=== PATIENT | female | born 1965 | race Caucasian/White ===

== ENCOUNTER 2023-10-31 23:44 | Inpatient (IN) | payer BC, SELFPAY ==
[2023-10-31 23:54] VITALS: BP 149/78; PULSE 124; RESP 26; TEMP 36.7; O2SAT 92; O2SAT 95; BMI 45.2
--- NOTE | 2023-10-31 23:54 | CRLHL7_ITS ---
For Patients: As a result of the Century Cures Act, medical imaging exams and procedure reports are released immediately into your electronic medical record. You may view this report before your referring provider. If you have questions, please contact your health care provider. INDICATION: Shortness of breath. TECHNIQUE: CT chest PE was acquired with 79 cc Isovue 370 IV contrast. COMPARISON: None. FINDINGS: Heart and vasculature: Contrast opacification of the pulmonary arterial tree is adequate. Extensive bilateral pulmonary emboli, including in the right interlobar pulmonary artery and left pulmonary artery. Heart size is normal. Flattening of the interventricular septum with RV:LV ratio of 1.3, reflecting right heart strain. Thoracic aorta and pulmonary artery are normal in caliber. Lungs and pleura: Mosaic attenuation, likely representing air trapping. Few linear parenchymal bands, likely representing subsegmental atelectasis. No suspicious nodules or infiltrates. No pleural effusions, pleural thickening, or pneumothorax. Lymph nodes/mediastinum: No mediastinal, hilar, or axillary adenopathy. Thyroid gland is unremarkable. Chest wall: No masses. Upper abdomen: Status post cholecystectomy. 5 cm left adrenal nodule measuring less than 0 Hounsfield units, likely an adenoma. Bones: Unremarkable for age. IMPRESSION: 1. Extensive bilateral pulmonary emboli with evidence of right heart strain. 2. Findings were discussed with Dr. Oden by Dr. Ji on 11/01/2023 at 01:29 AM. 3. Air trapping, likely secondary to small airways disease. Please note that all CT scans at this facility use dose modulation, iterative reconstruction, and/or weight-based dosing when appropriate to reduce radiation dose to as low as reasonably achievable. Dictated by Juanito Ji MD @ 11/01/2023 1:21:00 AM (Electronically Signed)
[2023-11-01] VITALS (16 sets, daily range): BP systolic 104–138; BP diastolic 65–90; PULSE 86–113; RESP 16–22; TEMP 36.4–36.8; O2SAT 91–93; BMI 47.0
[2023-11-01 00:32] LABS: Basophils Absolute Auto 0.04 K/uL (0.00-0.30); Basophils Percent Auto 0.4 % (0.0-3.0); Eosinophils Absolute Auto 0.06 K/uL (0.00-0.50); Eosinophils Percent Auto 0.6 % (0.0-7.0); Hemoglobin* 11.9 gm/dL (12.0-16.0); Immature Granulocytes Abs Auto 0.04 K/uL (0.00-0.30); Immature Granulocytes Pct Auto 0.4 %; Lymphocytes Percent Auto 10.1 % (20-44); Mean Corpuscular HGB Conc 31 gm/dL (32-36); Mean Corpuscular Hemoglobin 27 pg (26-34); Mean Corpuscular Volume 87 fL (80-100); Monocytes Percent Auto 3.1 % (0.0-11.0); Neutrophils Percent Auto 85.4 % (42.0-72.0); Platelet Count* 190 K/uL (140-440); RDW Coefficient of Variation % 14.5 % (11.5-15.5); Red Blood Count 4.36 m/uL (4.00-5.20); White Blood Count* 10.82 K/uL (4.50-11.00)
[2023-11-01 00:36] LABS: Slide Review Reflex No
--- NOTE | 2023-11-01 00:45 | ED_ITS ---
HPI - SOB/Dyspnea General Date Seen: 11/01/23 Chief Complaint: Shortness of Breath/Dyspnea Stated Complaint: syncope Time Seen by Provider: 11/01/23 00:13 Source: patient Mode of arrival: EMS Limitations: no limitations History of Present Illness HPI Narrative: Patient is a 57-year-old female who comes in with fairly sudden onset of shortness of breath that began earlier this evening. Her past medical history is significant for pulmonary emboli diagnosed early in 2022. She was treated with the Eliquis for more than a year. She saw hematology in May 2023 and had a negative hypercoagulability workup. Her father is lupus anticoagulant positive. She was told that she could stop her Eliquis and has been off the medication since June. An July she developed a cough and has been coughing since that time although it does not appear that she has been into the clinic for this. She denies any leg swelling. Previously she had clot in her right leg. She has some pain in the left leg but she also has fibromyalgia in his daily leg pain. She has not noticed any warmth, redness, asymmetric swelling. Ambulance was called and she was found to have an oxygen saturation of about 80%. She arrived in the ER in a non-rebreather mask on a L of oxygen. We have been able to decrease that since her arrival. 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 She has hypertension and takes atenolol and lisinopril and hydrochlorothiazide. She has type 2 diabetes and takes metformin. Her last A1c was in the seven range. She is not monitor her blood sugar at home. She denies any exertional chest pains but acknowledges that she is not physically active. She is a nonsmoker. Related Data Allergies Allergy/AdvReac Type Severity Reaction Status Date / Time Penicillins AdvReac Verified 11/01/23 00:32 Sulfa (Sulfonamide AdvReac Verified 11/01/23 00:32 Antibiotics) Review of Systems Narrative: Review of systems is positive for chronic leg pain related to fibromyalgia. She has type 2 diabetes but does not check her blood sugar. She has hypertension but does not monitor her blood pressure at home. Review of systems is otherwise noted to be negative. [facility] Medical History (Updated 11/01/23 @ 01:38 by Gomez Montesinos MD) Primary hypertension ?I10 - Essential (primary) hypertension (ICD-10) Type 2 diabetes mellitus, without long-term current use of insulin ?E11.9 - Type 2 diabetes mellitus without complications (ICD-10) Fibromyalgia ?M79.7 - Fibromyalgia (ICD-10) DVT (deep vein thrombosis) in ?O22.30 - Deep phlebothrombosis in , unspecified trimester (ICD-10) Pulmonary embolism ?I26.99 - Other pulmonary embolism without acute cor pulmonale (ICD-10) Surgical History (Updated 11/01/23 @ 00:41 by Gomez Montesinos MD) [place] teeth extracted ?K08.409 - Partial loss of teeth, unspecified cause, unspecified class (ICD- 10) Hx laparoscopic cholecystectomy ?Z90.49 - Acquired absence of other specified parts of digestive tract (ICD- 10) Family History (Updated 11/01/23 @ 00:41 by Gomez Montesinos MD) Father Lupus anticoagulant positive Social History (Updated 11/01/23 @ 00:42 by Gomez Montesinos MD) Narrative: , 1 son, [employer], non-smoker, PCP [facility] Smoking Status: Never smoker Do you use any of these nicotine containing products: None How often do you have a drink containing alcohol: never AUDIT-C Alcohol total score: 0 Non-prescribed substance use: denies use Exam Narrative: Exam Narrative: Vitals noted. HEENT: Conjunctiva clear. Neck is supple without adenopathy, thyromegaly, carotid bruit. No jugular venous distension. Lungs: She has coarse rhonchi. No dependent rales. No expiratory wheezes. She has some congestion that clears with coughing. Heart: Mildly tachycardic but regular Regular rate and rhythm without murmur. Abdomen: Soft and nontender. No guarding, rigidity, rebound. Bowel sounds are normal. No palpable masses. Extremities: No cyanosis or edema. Good distal pulses. No warmth, redness, swelling of either calf. Negative Bishop sign. Skin: No abnormalities noted of the exposed skin. Neurologic: Awake, alert, fully oriented. Neurologic exam is nonfocal. Const: Vital Signs, click to edit/add: Vital Signs - 24 hr 10/31/23 23:54 10/31/23 23:54 11/01/23 01:15 Temperature 98.0 F Pulse Rate 113 H Pulse Rate [Pulse Oximeter] 124 H Respiratory Rate 26 H Blood Pressure Blood Pressure [Ri ght Upper Arm] 149/78 H Pulse Oximetry 95 92 93 Oxygen Delivery Me thod OxyMask OxyMask Oxygen Flow Rate 8 5 11/01/23 01:21 11/01/23 01:42 11/01/23 01:47 Temperature Pulse Rate 113 H 110 H Pulse Rate [Pulse Oximeter] Respiratory Rate 22 Blood Pressure 127/82 122/76 Blood Pressure [Ri ght Upper Arm] Pulse Oximetry 92 91 93 Oxygen Delivery Me thod OxyMask OxyMask Oxygen Flow Rate 5 5 Course Course ED Course: Patient seen and examined. EKG shows sinus tachycardia with a rate of 118. No acute ST or T-wave changes. Her oxygen was weaned to 4 L by non-rebreather mask and she is oxygenating in the low to mid 90s. On room air she was only 80% when the paramedics arrived. Point of care troponin is 0.21. Labs show a CBC with hemoglobin of 11.9 which is otherwise unremarkable. INR 0.97. APTT is 29. D- dimer is very elevated at 12.37. Basic metabolic panel is normal other than a glucose of 248. Lactate is 3.0. Magnesium is 1.9. LFTs show an AST of 123 and an ALT of 91. Troponin is 0.16. CRP 1.6. ProBNP is 95. Procalcitonin 0.07. Triple swab is negative. Reevaluation(s) Reevaluation #1: CTA of the chest shows extensive bilateral pulmonary emboli with signs of right heart strain. RV: LV is 1.3. Patient started on IV heparin. Did speak with one of the intensivists at [facility] to determine if transfer for more aggressive care is warranted and she did not believe that was necessary. I spoke with the online hospitalist from [facility] who kindly agreed to admit the patient to the hospital. She is transferred to the medical floor in stable condition. She will require lifelong anticoagulation at this point. She should have lower extremity Dopplers tomorrow as well as an echo. Her Echo a year ago apparently was normal. Vital Signs Vital signs: Initial Vital Signs Temperature 98.0 F 10/31/23 23:54 Temperature Source Temporal Artery Scan 10/31/23 23:54 Pulse Rate 124 H 07/25/24 23:54 Respiratory Rate 26 H 10/31/23 23:54 Blood Pressure 149/78 H 10/31/23 23:54 Blood Pressure Mean 101 10/31/23 23:54 Blood Pressure Position Sitting 10/31/23 23:54 Pulse Oximetry 95 10/31/23 23:54 Oxygen Delivery Method OxyMask 10/31/23 23:54 Oxygen Flow Rate 8 10/31/23 23:54 Vital Signs Temperature 98.0 F 10/31/23 23:54 Pulse Rate 124 H 10/31/23 23:54 Respiratory Rate 26 H 10/31/23 23:54 Blood Pressure 149/78 H 10/31/23 23:54 Pulse Oximetry 95 10/31/23 23:54 Oxygen Delivery Method OxyMask 10/31/23 23:54 Oxygen Flow Rate 8 10/31/23 23:54 Temperature 98.0 F 10/31/23 23:54 Pulse Rate 110 H 11/01/23 01:42 Respiratory Rate 22 11/01/23 01:42 Blood Pressure 122/76 11/01/23 01:42 Pulse Oximetry 93 11/01/23 01:47 Oxygen Delivery Method OxyMask 11/01/23 01:42 Oxygen Flow Rate 5 11/01/23 01:42 Medications Administered Medications: Generic Name Dose Route Start Last Admin Trade Name Freq PRN Reason Stop Dose Admin Heparin Sodium/Dextrose 25,000 unit in 500 mls @ 0 mls/hr 11/01/23 01:30 11/01/23 01:33 Heparin IV 1,500 unit/hr .Q0M AILEEN 30 mls/hr Administration Protocol Per Protocol Discontinued Medications Generic Name Dose Route Start Last Admin Trade Name Freq PRN Reason Stop Dose Admin Heparin Sodium (Porcine) 10,000 unit 11/01/23 01:20 11/01/23 01:32 Heparin 5,000 Unit/0.5 Ml Inj IVP 11/01/23 01:21 10,000 unit ONCE ONE Administration MDM - SOB/Dyspnea Lab Data Labs: Lab Results 11/01/23 11/01/23 11/01/23 Range/Units 00:25 00:25 01:00 WBC 10.82 (4.50-11.00) K/uL RBC 4.36 (4.00-5.20) m/uL Hgb 11.9 L (12.0-16.0) gm/dL Hct 38.0 (33.0-51.0) % MCV 87 (80-100) fL MCH 27 (26-34) pg MCHC 31 L (32-36) gm/dL RDW Coeff of Alan 14.5 (11.5-15.5) % Plt Count 190 (140-440) K/uL Neut % (Auto) 85.4 H (42.0-72.0) % Lymph % (Auto) 10.1 L (20-44) % Haines % (Auto) 3.1 (0.0-11.0) % Eos % (Auto) 0.6 (0.0-7.0) % Baso % (Auto) 0.4 (0.0-3.0) % Neut # (Auto) 9.20 H (1.7-7.0) K/uL Lymph # (Auto) 1.10 (0.90-2.90) K/uL Haines # (Auto) 0.30 (0.00-0.90) K/UL Eos # (Auto) 0.06 (0.00-0.50) K/uL Baso # (Auto) 0.04 (0.00-0.30) K/uL Abs Immat Gran (auto) 0.04 (0.00-0.30) K/uL Imm/Tot Granulo (auto) 0.4 % PT Cancelled INR 0.97 Cancelled (0.91-1.10) APTT 29 (23-33) Seconds D-Dimer Quant (PE/DVT) 12.37 H (0.00-0.50) ug/ml Sodium 137 (135-149) mmol/L Potassium 4.3 (3.6-5.1) mmol/L Chloride 101 (96-114) mmol/L Carbon Dioxide 24 (20-32) mmol/L Anion Gap 12 (7-15) mEq/L BUN 26 (7-30) mg/dL Creatinine 1.1 (0.5-1.5) mg/dL Estimated Creat Clear 52.82 Estimated GFR 59 ml/min Glucose 248 H (60-115) mg/dL Lactate 3.0 H (0.5-1.9) mmol/L Calcium 10.1 (8.4-10.6) mg/dL Magnesium 1.9 (1.5-2.6) mg/dL Total Bilirubin 0.6 (0.1-1.5) mg/dL Direct Bilirubin 0.4 (0.0-0.5) mg/dL AST 123 H (12-35) U/L ALT 91 H (4-35) U/L Alkaline Phosphatase 101 (40-150) U/L Troponin I 0.16 H* (0.01-0.04) ng/mL C-Reactive Protein 1.6 H (0.5-1.0) mg/dL NT-Pro-B Natriuret Pep 95 pg/mL Total Protein 8.0 (6.0-8.3) g/dL Albumin 4.9 (3.3-5.0) g/dL Procalcitonin 0.07 (<0.50) ng/mL SARS-CoV-2 (PCR) Negative SARS-CoV-2 (Negative) Influenza Type A (PCR) Negative PCR FLU A (Negative) Influenza Type B (PCR) Negative PCR FLU B (Negative) RSV (PCR) Negative PCR RSV (Negative) POC Troponin I 0.21 H (0.01-0.04) ng/ml Discharge Plan Discharge Clinical Impression: Pulmonary embolism Patient Disposition: Admitted As Inpatient Condition: Stable
[2023-11-01 00:46] LABS: Chloride* 101 mmol/L (96-114)
[2023-11-01 00:47] LABS: Albumin* 4.9 g/dL (3.3-5.0); Sodium* 137 mmol/L (135-149)
[2023-11-01 00:48] LABS: Potassium* 4.3 mmol/L (3.6-5.1)
--- OUTSIDE RECORDS SUMMARY | 2023-11-01 00:48 | XMS_ITS | Clinical Summary ---
Author Organization [employer] [facility] Address [place], [place] [address] Care Team Providers Care Case Monitor Name Role Phone Antonina Gaston Primary Care Provider Terri Dubose MD Unavailable [phone] Allergies Active Allergy Reactions Criticality Noted Date Comments Penicillins Sulfa (Sulfonamide Antibiotics) Tizanidine *Unknown 11/19/2022 Medications Medication Sig Dispensed Refills Start Date End Date Status chromium picolinate 200 mcg tablet Take 200 mcg by mouth once daily. 0 04/11/2010 Active ORDER - MEDICATION ORDER COMPOSER Adrenogen - 2 per day 0 04/11/2010 Active ORDER - MEDICATION ORDER COMPOSER Metagest - one per day 0 07/17/2010 Active multivitamin (MVI) tablet Take 1 Tablet by mouth once daily. 0 07/31/2013 Active aspirin (ECOTRIN) 81 mg enteric coated tabletIndications:Un specified essential hypertension Take 1 tablet by mouth once daily. 90 tablet 3 06/01/2014 Active magnesium 250 mg tab Take 1 tablet by mouth once daily. 0 10/01/2014 Active Lactobacillus Acidophilus cap Take by mouth two times daily. Takes 3 per day (split into two doses). Patient taking 2 different probiotics each 1 tab 3 times a day 0 10/01/2014 Active qdjbzuznk-uegbxwz-dl gnes-manga [id number] mg pwpk Mix in liquid then take by mouth two times daily. 0 10/14/2015 Active cholecalciferol, Vitamin D3, 5,000 unit tab tablet Take 1 tablet by mouth once daily. 0 11/05/2017 Active turmeric root extract 500 mg cap Take 500 mg by mouth once daily. 0 12/12/2018 Active jdhgk-bg-6-dha-epa-p hospho-ast [id number] mg cap Take 1 Capsule by mouth once daily. 0 12/12/2018 Active blood sugar diagnostic (CONTOUR NEXT TEST STRIPS) stripIndications:Con trolled type 2 diabetes mellitus without complication, without long-term current use of insulin (HC) Contour NEXT strips. Test 3 times per week 50 Strip 12 05/11/2019 Active lancets (MICROLET LANCET)Indications:C ontrolled type 2 diabetes mellitus without complication, without long-term current use of insulin (HC) For testing blood sugars at home 3 times per week 100 Each 05/11/2019 Active Black Cohosh 540 mg capsule Take 540 mg by mouth three times daily. 0 08/05/2020 Active Saccharomyces boulardii (FLORASTOR) 250 mg capsule Take by mouth two times daily. Takes 3 per day (split into 2 doses) Not taking 0 08/05/2020 Active ascorbic acid chewable (VITAMIN C) 500 mg tablet Chew 500 mg by mouth once daily. Active loratadine (CLARITIN) 10 mg tablet Take 10 mg by mouth once daily. Active apixaban (Eliquis) 5 mg tabletIndications:Bi lateral pulmonary embolism (HC) Take 1 Tablet (5 mg) by mouth two times daily. 30 Tablet 6 12/04/2022 Active atenoloL (TENORMIN) 50 mg tabletIndications:HT N (hypertension) Take 1 Tablet (50 mg) by mouth once daily. 90 Tablet 3 02/08/2023 Active hydroCHLOROthiazide (HCTZ) 25 mg tabletIndications:HT N (hypertension) Take 1 Tablet (25 mg) by mouth once daily. 90 Tablet 3 02/08/2023 Active lisinopriL (PRINIVIL; ZESTRIL) 40 mg tabletIndications:Hy pertension, unspecified type Take 1 Tablet (40 mg) by mouth once daily. 90 Tablet 3 02/08/2023 Active metFORMIN (GLUCOPHAGE XR) 750 mg Extended-Release tabletIndications:Co ntrolled type 2 diabetes mellitus without complication, without long-term current use of insulin (HC) Take 2 Tablets (1,500 mg) by mouth once daily with evening meal. 180 Tablet 3 02/08/2023 Active Active Problems Problem Noted Date Diagnosed Date Left adrenal mass 05/05/2022 Acute pulmonary embolism 05/03/2022 Controlled type 2 diabetes m ivanitus without complication, without long-term current use of insulin 01/20/2021 Carpal tunnel syndrome of right wrist 12/28/2020 Encounter related to worker's compensation claim 12/28/2020 De Quervain's tenosynovitis, left 12/28/2020 Carpal tunnel syndrome of left wrist 12/28/2020 Cholelithiasis 05/11/2014 Fibromyalgia 05/07/2014 Anxiety state, unspecified 12/15/2009 Obesity, unspecified 05/13/2009 Unspecified essential hypertension 03/05/2007 Resolved Problems Problem Noted Date Diagnosed Date Resolved Date Vitamin D deficiency 05/18/2009 012 Immunizations Name Administration Dates Next Due AMB Influenza, IIV3 (Age >=3 years)(Flu Clinic Only) 01/11/2009 AMB Influenza, IIV4 PF (=>6 mos Flulaval,Fluzone Fluarix)(Flu Clinic Only) 01/11/2014 COVID-19 Vaccine Spikevax (M oderna 50mcg/0.5mL) 12YO+ [id number] Formula PF 02/08/2023 COVID-19 vaccine (Rock'n Rover-Bio NTech 30mcg/0.3mL) 12YO+ BIVALENT PF, MDV 02/07/2022 DT (Age < 7 years) 06/26/1989 Influenza A (H1N1), Inactiva eva (Age >=3 Years) 02/17/2009 Influenza, IIV3 (Age 6-35 mos) 3,02/12/2012,01/17/2011,2009,02/26/2007 Influenza, IIV3 (Age >=3 years) 02/02/20 15,02/14/2010,01/11/2009,2007,05/17/2006 Influenza, IIV4 02/08/2023, 2,01/20/2021,2019,01/18/2019,01/10/2018,01/14/2017,1 ,02/01/2015,01/11/2014 Td (Age >=7 Years) 01/20/2021,10/18/2000 Tdap 05/22/2010 Varicella Vaccine 08/14/1996,07/03/1996 Family History Medical History Relation Name Comments Good Health Brother two brothers Other Father Lupus Anticoagu lant Stroke Father Cancer-breast Maternal Grandmother diagno sed at age 80 Diabetes Maternal Grandmother diagnos ed in 60s or 70s Cancer Mother lymphoma Hyperlipidemia Mother Hypertension Mother Other Mother lupus Cancer Paternal Aunt pancreas? Good Health Sister Cancer-ovarian No Family History Relation Name Status Comments Brother Father Maternal Grandmother Mother Paternal Aunt Sister Social History Tobacco Use Types Packs/Day Years Used Date Smoking Tobacco: Never Smokeless Tobacco: Never Tobacco Cessation:Counseling Given: Yes Alcohol Use Standard Drinks/Week Comments No 0 (1 standard drink = 0.6 oz pur e alcohol) very seldom PHQ-2 Answer Date Recorded PHQ-2 TOTAL SCORE 2 01/05/2020 Social Connections Answer Date Recorded Frequency of Communication with Friends and Fami ly Not on file 04/08/2021 Financial Resource Strain Answer Date R ecorded Difficulty of Paying Living Expenses Not on file 04/08/2021 Difficulty of Paying Living Expenses Not on file 04/08/2021 Sex and Gender Information Value Date Recorded Sex Assigned at Not on file Gender Identity Not on file Sexual Orientation Not on file Obstetrics History Para Term AB IAB SAB Ectopic Multiple Livin g Live Births 3 2 2 1 1 2 Date Outcome GA Total Labor Labor/2nd/3rd Weight Sex Type Anes PTL Belle A1 A5 Name Clin SAB Term Term Last Filed Vital Signs Vital Sign Reading Time Taken Comments Blood Pressure 129/65 06/04/2023 2:56 PM BEHAVIORAL PEDIATRICIAN Pulse 80 06/04/2023 2:56 PM BEHAVIORAL PEDIATRICIAN Temperature 36.6 ??C (97.9 ??F) 06/04/2023 2:56 PM CS T Respiratory Rate 16 06/04/2023 2:56 PM BEHAVIORAL PEDIATRICIAN Oxygen Saturation 96% 06/04/2023 2:56 PM BEHAVIORAL PEDIATRICIAN Inhaled Oxygen Concentration - - Weight 131.2 kg (289 lb 3.2 oz) 06/04/2023 2:56 PM BEHAVIORAL PEDIATRICIAN Height 167.6 cm (5' 6) 02/08/2023 10:1 1 AM CDT Body Mass Index 46.68 02/08/2023 10:11 AM CDT Plan of Treatment Health Maintenance Due Date Last Done Comments Pneumococcal series for age 6-64 (1 of 2 - PCV) 11/29/1971 HIV for age 15-65 1980 Hepatitis C screening for ag e 18-79 11/29/1983 Hepatitis B series for Diabe karla (1 of 3 - 19+ 3-dose series) 1984 Colonoscopy through age 75 2010 Zoster (shingles) series for age 50+ (1 of 2) 11/29/2015 Depression screening for age 12+ 01/04/2021 01/05/2020, 01/05/2020, 12/12/2018, Additional history exists Mammogram for age 45-75 02/28/2023 02/29/20 22, 01/20/2021, 01/05/2020, Additional history exists Influenza for age 50-64 12/08/2023 02/09/20, 02/07/2022, 01/20/2021, Additional history exists Pap test for age 21-65 12/13/2023 9, 12/12/2018, 10/14/2015, Additional history exists BMI (ht and wt on same day) for age 18+ 02/09/2024 02/08/2023, 02/07/2022, 06/30/2021, Additional history exists Lipids for age 45-75 02/09/2028 02/08/2023, 01/22/2022, 01/20/2021, Additional history exists Tetanus booster 01/20/2031 01/20/2021, 05/09, 10/18/2000 Tdap Completed 05/22/2010 COVID-19 vaccine series Completed 02/09/20, 02/07/2022, 03/19/2021, Additional history exists Procedures Procedure Name Priority Date/Time Associated Diagnosis Comments LIPID PANEL W REFLEX MEASURED LDL Routine 02/08/2023 9:44 AM CDT Screening cholesterol level XR MAMMO BILAT SCREENING Routine 02/28/2022 4:02 PM BEHAVIORAL PEDIATRICIAN Visit for screening mammogram GAS OPERATOR THIN PREP PAP SCREEN IMAGED Routine 12/12/2018 10:34 AM CDT Screening for cervical cancer from Last 3 Months or Most Recently Relevant to Health Maintenance Results * (ABNORMAL) LIPID PANEL W REFLEX MEASURED LDL (02/08/2023 9:44 AM CDT) CHOLESTEROL,TOTAL 208(H) 100 - 199 mg/dL 02/08/2023 4:02 PM CDT [facility] Comment: Cholesterol, Total Reference Ranges Desirable <200 mg/dL Borderline 200-239 mg/dL High >=240 mg/dL TRIGLYCERIDES 311(H) <150 mg/dL 02/08/2023 4:02 PM CDT [facility] HDL CHOLESTEROL 44 >40 mg/dL 4:02 PM CDT [facility] NON-HDL CHOLESTEROL 164(H) <145 mg/dl 02/08/2023 4:02 PM CDT [facility] CHOL/HDL RATIO 4.73(H) <4.50 02/08/2023 4:02 PM CDT [facility] LDL CHOLESTEROL 102 <=130 mg/dL 02/08/2023 4:02 PM CDT [facility] VLDL CHOLESTEROL 62(H) <=30 mg/dL 02/08/2023 4:02 PM CDT [facility] PROVIDER ORDERED STATUS RANDOM 02/08/2023 4:02 PM CDT [facility] Blood BLOOD SPECIMEN / Unknown Venipuncture / Unknown 02/08/2023 9:44 AM CDT 02/08/2023 9:44 AM CDT Antonina [facility]OOLE [facility] [address] [place] [address], * XR MAMMO BILAT SCREENING (02/28/2022 4:02 PM BEHAVIORAL PEDIATRICIAN) Anatomical Region Laterality Modality BREASTS, Breast Left, Breast Right Bilateral Mammography Impressions 03/02/2022 4:20 PM BEHAVIORAL PEDIATRICIAN ??There is no radiographic evidence for malignancy. ??Recommend annual mammograms. MAMMOGRAM ASSESSMENT: ??ACR 1 Negative PATIENTS: You will also receive a letter with your examination results in an easy to read format. ??If you have questions about your results, please contact your referring provider. Narrative 03/02/2022 4:20 PM BEHAVIORAL PEDIATRICIAN For Patients: As a result of the Century Cures Act, medical imaging exams and procedure reports are released immediately into your electronic medical record. You may view this report before your referring provider. If you have questions, please contact your health care provider. XR MAMMO BILAT SCREENING [[id number]] CLINICAL HISTORY: ??This is an asymptomatic 56 y.o. patient. INDICATION FOR EXAM: Mammogram Screening. TECHNIQUE: CC & MLO views were obtained. ??This study was evaluated with the assistance of Computer-Aided Detection. COMPARISON FILM: Yes 01/20/21 Cellerix 01/05/20 [facility] Clear Advantage Collar FINDINGS: ??The breasts have scattered areas of fibroglandular density. There are no dominant masses, suspicious micro calcifications or areas of architectural distortion. Antonina POOLE MAMMO * GAS OPERATOR THIN PREP PAP SCREEN IMAGED (12/12/2018 10:34 AM CDT) Case Report Gynecologic Cytology Report ? Case: [id number] ? Authorizing Provider: ??Antonina Gaston PA Collected: ? 12/12/2018 1034 ? Ordering Location: ? [facility] ?? Received: ?12/12/2018 1049 ? Clinic ? First Screen: ?Candida Pickering ? Specimen: ?GAS OPERATOR ThinPrep Vial Screening, Cervical ? 12/19/2018 4:06 PM CDT [facility] INTERPRETATION/ RESULT NEGATIVE FOR INTRAEPITHELIAL LESION OR MALIGNANCY (NIL) (none) 12/19/2018 4:06 PM CDT [facility] NISM(S) Shift in mike suggestive of bacterial vaginosis 12/19/2018 4:06 PM CDT [facility] SPECIMEN ADEQUACY Satisfactory for evaluation Endocervical component present 12/19/2018 4:06 PM CDT [facility] HPV REQUEST HPV and PAP 12/19/2018 4:06 PM CDT [facility] Date of LMP unknown 12/19/2018 4:06 PM CDT [facility] Last Pap Date 7/8/16 12/19/2018 4:06 PM CDT [facility] Last Pap Result NIL 9 4:06 PM CDT [facility] Abnormal Pap or Waldo Bx in last 5 years No 12/19/2018 4:06 PM CDT [facility] Menstrual Status Postmenopausal 12/19/2018 4:06 PM CDT [facility] Waldo Bx Done Today No 12/19/2018 4:06 PM CDT [facility] Additional Information None given 12/19/2018 4:06 PM CDT [facility] Automated Review Successful 12/19/2018 4:06 PM CDT [facility] Comment:Specimen processed s uccessfully by automated bar manager device, AquirisPrep Imaging System, [employer] ANCILLARY TESTING GAS OPERATOR HPV Ordered, Please see separate report 12/19/2018 4:06 PM CDT [facility] Note The pap test is a screening technique, not a diagnostic procedure. ??It is used primarily to screen for squamous cancers and precursor lesions. ??Published studies have shown that it is subject to both false negative and false positive results. ??The pap test should not be used as the sole means to diagnose or exclude pre-malignant and malignant lesions. Cytology is screened and interpreted at [facility] - [address], [place] [address] and [facility] - [address]; [place] [address] and [facility] - [address]; [place] [address] and [facility] [address]; [place] [address] 12/19/2018 4:06 PM CDT [facility] Other (Cervical) Non-Blood / Unknown 12/12/2018 10:34 AM CDT 12/12/2018 10:49 AM CDT Antonina POOLE PATHOLOGY/CYTOL OGY [facility] [address] [place] [address], [place] from Last 3 Months or Most Recently Relevant to Health Maintenance Advance Directives * Full Code (Latest Code Status on File) Date Activated Date Inactivated Comments 05/04/2022 12:36 AM 05/05/2022 4:55 PM Question Answer Comments Code Status Discussion: Reviewed Preferences Care Teams Case Monitor Relationship Specialty Start Date End Date Antonina Gaston PA [address] [facility] [place] [address] PCP - General Family Practice 05/30/15 Terri Dubose MD [address] [facility] [place] [address] Rheumatology Rheumatology 11/12/17
[2023-11-01 00:50] LABS: Alkaline Phosphatase* 101 U/L (40-150); Anion Gap 12 mEq/L (7-15); Aspartate Amino Transferase* 123 U/L (12-35); Bilirubin Direct* 0.4 mg/dL (0.0-0.5); Bilirubin Total* 0.6 mg/dL (0.1-1.5); Carbon Dioxide* 24 mmol/L (20-32); Creatinine* 1.1 mg/dL (0.5-1.5); Est. Creatinine Clearance* 52.82; Estimated Glomerular Filt Rate 59 ml/min; INR 0.97 (0.91-1.10); Prothrombin Time 13.5 Seconds
[2023-11-01 00:51] LABS: Alanine Aminotransferase* 91 U/L (4-35); Blood Urea Nitrogen* 26 mg/dL (7-30); Calcium* 10.1 mg/dL (8.4-10.6); Glucose* 248 mg/dL (60-115); Magnesium* 1.9 mg/dL (1.5-2.6)
[2023-11-01 00:53] LABS: C Reactive Protein* 1.6 mg/dL (0.5-1.0)
[2023-11-01 01:04] LABS: NT Pro B Type NatriureticPept* 95 pg/mL
[2023-11-01 01:05] LABS: D Dimer Quantitative* 12.37 ug/ml (0.00-0.50)
[2023-11-01 01:07] LABS: Procalcitonin* 0.07 ng/mL (<0.50)
[2023-11-01 01:08] LABS: Troponin I* 0.16 ng/mL (0.01-0.04)
[2023-11-01 01:11] LABS: PCR FLU A Negative PCR FLU A (Negative); PCR FLU B Negative PCR FLU B (Negative); PCR RSV Negative PCR RSV (Negative); SARS PCR* Negative SARS-CoV-2 (Negative)
[2023-11-01 01:16] LABS: Troponin, Point-of-Care* 0.21 ng/ml (0.01-0.04)
[2023-11-01] MEDS: HEPARIN 5,000 UNIT/0.5 ML INJ 10000 UNIT IVP (01:32)
[2023-11-01] MEDS: HEPARIN 25,000 UNIT/500 ML BAG 30 UNIT IV (01:33)
[2023-11-01 01:57] LABS: Partial Thromboplastin Time* 29 Seconds (23-33)
--- NOTE | 2023-11-01 03:40 | W.PM.THH&P_ITS ---
Telehealth- H&P: HPI History of Present Illness Date Seen: 11/01/23 Chief complaint: syncope Narrative: Maliha Peres is seen as an Interactive Telehealth visit. Maliha Peres is a 57 year old male who is Seen in her hospital room with the assistance of nursing staff. Her is present during the interview and exam. She has been admitted through the emergency room. She tells me over the last couple days she has been having pain in her left lower extremity. A little bit short of breath today she became very suddenly short of breath to the point that she could hardly walk paramedics were called she was brought into the emergency room. About a year ago she was diagnosed with a pulmonary embolism. She was worked up for hypercoagulable state by hematology oncology which was negative. She was treated with Eliquis. This was discontinued. She does have a father who sounds like may have lupus anticoagulant. Nevertheless she came to the emergency room was evaluated and found to have a fairly substantial clot on both sides possible heart strain on CT scan. She has now been admitted for further evaluation and treatment. She is currently requiring 5 L of oxygen. She also complains of a cough which she states she has had for months. No fevers no chills no chest pain per se a little bit of chest heaviness. She does not have any other concerns. Review of Systems Narrative: A complete review of systems was performed positive pertinent and negatives in the history of present illness. [facility] Medical History (Updated 11/01/23 @ 03:45 by Jose Dunn DO) Primary hypertension ?I10 - Essential (primary) hypertension (ICD-10) Type 2 diabetes mellitus, without long-term current use of insulin ?E11.9 - Type 2 diabetes mellitus without complications (ICD-10) Fibromyalgia ?M79.7 - Fibromyalgia (ICD-10) DVT (deep vein thrombosis) in ?O22.30 - Deep phlebothrombosis in , unspecified trimester (ICD-10) Pulmonary embolism ?I26.99 - Other pulmonary embolism without acute cor pulmonale (ICD-10) Surgical History (Updated 11/01/23 @ 00:41 by Gomez Montesinos MD) [place] teeth extracted ?K08.409 - Partial loss of teeth, unspecified cause, unspecified class (ICD- 10) Hx laparoscopic cholecystectomy ?Z90.49 - Acquired absence of other specified parts of digestive tract (ICD- 10) Family History (Updated 11/01/23 @ 00:41 by Gomez Montesinos MD) Father Lupus anticoagulant positive Social History (Updated 11/01/23 @ 00:42 by Gomez Montesinos MD) Narrative: , 1 son, [employer], non-smoker, PCP Fe What is your current living situation?: I presently have a place to live Problems where you live: no known problems Problems where you live details: N/A In the past 12 months, utilities in danger of being shut off: no In past 12 months, lack of transportation kept you from medical appts, meetings, work, or getting things needed for daily living: no In the past 12 mos, have been you worried that your food would run out before you had money to buy more?: never true In the past 12 mos, the food you bought just didn't last and you didn't have money to buy more?: never true Highest level of school completed/degree received: some college, no degree Smoking Status: Never smoker Do you use any of these nicotine containing products: None How often do you have a drink containing alcohol: never AUDIT-C Alcohol total score: 0 Non-prescribed substance use: denies use Caffeine: No How often does anyone, including family, friends and others, physically hurt you : never How often does anyone, including family, friends and others, insult or talk down to you: never How often does anyone, including family, friends and others, threaten you with harm: never How often does anyone, including family, friends and others, scream or curse at you: never service: No Meds Home Medications and Allergies Allergies Allergy/AdvReac Type Severity Reaction Status Date / Time Penicillins AdvReac Verified 11/01/23 03:06 Sulfa (Sulfonamide AdvReac Verified 11/01/23 03:06 Antibiotics) Exam Narrative Exam Narrative: Physical Exam GENERAL: ?vital signs reviewed, well developed and nourished, in no distress HEENT: pupils are equal round and reactive to light, extraocular movements are grossly within normal limits and oral mucosa is moist. NECK: Supple without lymphadenopathy or thyromegaly according to nursing staff examination observation HEART: Regular rate and rhythm without any rubs, murmurs, or gallops. LUNGS: Clear to auscultation bilaterally with good air movement throughout ABDOMEN: Observation from nurse assisted exam, abdomen appears soft, nontender, and nondistended with Positive bowel sounds noted. EXTREMITIES: Strength and sensation is observed to be grossly within normal limits in the upper and lower extremities.? No focal strength deficit is observed. SKIN:? Observed warm and dry with color normal Const Vital Signs, click to edit/add: Vital Signs - 24 hr 10/31/23 23:54 10/31/23 23:54 11/01/23 01:15 Temperature 98.0 F Pulse Rate 113 H Pulse Rate [Left Pulse Oximeter] Pulse Rate [Pulse Oximeter] 124 H Respiratory Rate 26 H Blood Pressure Blood Pressure [Right Arm] Blood Pressure [Right Upper Arm] 149/78 H Pulse Oximetry 95 92 93 Oxygen Delivery Method OxyMask OxyMask Oxygen Flow Rate 8 5 11/01/23 01:21 11/01/23 01:42 11/01/23 01:47 Temperature Pulse Rate 113 H 110 H Pulse Rate [Left Pulse Oximeter] Pulse Rate [Pulse Oximeter] Respiratory Rate 22 Blood Pressure 127/82 122/76 Blood Pressure [Right Arm] Blood Pressure [Right Upper Arm] Pulse Oximetry 92 91 93 Oxygen Delivery Method OxyMask OxyMask Oxygen Flow Rate 5 5 11/01/23 02:01 11/01/23 02:30 11/01/23 02:47 Temperature Pulse Rate 110 H Pulse Rate [Left Pulse Oximeter] Pulse Rate [Pulse Oximeter] Respiratory Rate 20 20 Blood Pressure 120/69 Blood Pressure [Right Arm] Blood Pressure [Right Upper Arm] Pulse Oximetry 91 92 92 Oxygen Delivery Method OxyMask OxyMask OxyMask Oxygen Flow Rate 5 5 5 11/01/23 03:00 11/01/23 03:00 Temperature 98.3 F 98.3 F Pulse Rate Pulse Rate [Left Pulse Oximeter] 113 H 113 H Pulse Rate [Pulse Oximeter] Respiratory Rate 22 22 Blood Pressure Blood Pressure [Right Arm] 138/76 138/76 Blood Pressure [Right Upper Arm] Pulse Oximetry 92 92 Oxygen Delivery Method OxyMask OxyMask Oxygen Flow Rate 5 5 Hospitalist - H&P: Result Labs Labs: Short CBC 11/01/23 Range/Units 00:25 WBC 10.82 (4.50-11.00) K/uL Hgb 11.9 L (12.0-16.0) gm/dL Hct 38.0 (33.0-51.0) % Plt Count 190 (140-440) K/uL BMP 11/01/23 00:25 Sodium 137 Potassium 4.3 Chloride 101 Carbon Dioxide 24 BUN 26 Creatinine 1.1 Glucose 248 H Calcium 10.1 Cardiac Enzymes 11/01/23 Range/Units 00:25 Troponin I 0.16 H* (0.01-0.04) ng/mL Liver Function 11/01/23 Range/Units 00:25 Total Bilirubin 0.6 (0.1-1.5) mg/dL Direct Bilirubin 0.4 (0.0-0.5) mg/dL AST 123 H (12-35) U/L ALT 91 H (4-35) U/L Alkaline Phosphatase 101 (40-150) U/L Albumin 4.9 (3.3-5.0) g/dL ECG Interpretation: Twelve-lead EKG shows sinus tachycardia 118 bpm normal axis no blocks no ST elevations or depressions. Somewhat of a low voltage. Per my interpretation. Assessment and Plan Assessment and plan (1) Pulmonary embolism: Problem comment: Hypercoag workup neg, Eliquis x 1 year, stopped 06/29 Recurrent bilateral 10/29 Status: Acute (2) Respiratory failure: Status: Acute (3) Primary hypertension: Status: Acute (4) Type 2 diabetes mellitus, without long-term current use of insulin: Status: Acute (5) Fibromyalgia: Status: Acute (6) Elevated LFTs: Status: Acute Plan pulmonary embolism?patient has been already started on heparin we will continue this for this evening. Will get an echocardiogram looking for significant right heart strain. If she does have significant heart strain could consider an anari, Or other procedures catheter-based thrombectomy. For tonight she is requiring a little bit oxygen. She likely can be switched over to Eliquis in the next 12 hours or so. Hopefully patient continues to remain stable. She will need lifelong anticoagulation this was discussed with her on admission. Acute hypoxic respiratory failure?secondary to pulmonary embolism. Treatment as above heparinoid products then ultimately probable Eliquis. Elevated LFTs?AST higher than ALT. At this point no significance but if she becomes confused or shows signs of alcohol withdrawal this could be considered because of the ratio. Otherwise this can be followed up as an outpatient. Primary hypertension?will need to find what patient's home medications are along with treatment for her type 2 diabetes. These will need to be clarified in the morning. DVT prophylaxis will not be needed she is fully anticoagulated on heparin drip. CODE STATUS was discussed on admission she wishes to be a full code. Telehealth: Statement Statement Telehealth Visit: Today's History and Physical is provided via interactive telehealth by Jose Dunn DO.? Patient is located at [facility].? Provider is located at [facility].? Nursing staff assisted with the patient's exam. The visit being done today meets criteria for a telehealth visit and the patient or patient?s parent/guardian is aware the visit is a telehealth visit. Camera Start Time: 03:18 Camera End Time: 03:36
[2023-11-01] MEDS: ALBUTEROL INHALER 2 PUFF IH ×4 (04:27→21:39)
--- NOTE | 2023-11-01 06:46 | PC.NURSE ---
Shift note: Pt arrived at the facility from ED at 0230 accompanied by . Conscious, alert and oriented with IV Heparin infusing at 1500u/hr. Pt complained of SOB, mild pain in the left leg and upper back. At the time of MD review through Jared at 0330, pain was ay the minimum, reported at 1 or 2. Pt has been on 5L of oxygen through OxyMask to maintain O2 at 90. Vitally stable.
[2023-11-01 07:46] LABS: Prothrombin Time 14.9 Seconds
--- NOTE | 2023-11-01 07:51 | P.IMPN_ITS ---
Progress Note: A&P Assessment and plan (1) Pulmonary embolism: Problem details: - h/o RLE DVT and PE in 2022, treated with one year of Eliquis - previously negative hypercoagulable workup - recurrent extensive bilateral PE on chest CTA 11/01/23 with concern of R heart strain - notably elevated troponin (sinus tachycardia on EKG and telemetry) - heparin gtt initiated on admission 10/30; transitioned to oral Eliquis on 10/31 - TTE and BLE ultrasounds ordered for 10/31 Status: Acute (2) Respiratory failure: Problem details: - requiring supplemental oxygen, RT consulted Status: Acute (3) Primary hypertension: Problem details: - holding home Atenolol, HCTZ, and Lisinopril given lower BPs Status: Acute (4) Type 2 diabetes mellitus, without long-term current use of insulin: Problem details: - last A1C 7.0 on 02/2023 Status: Acute (5) Fibromyalgia: Status: Acute (6) Elevated LFTs: Problem details: - mild, potentially related to right heart strain, continue to follow Status: Acute Plan - per above - plan pending results of TTE and LE doppler, in addition to ability to wean off of supplemental oxygen Subjective Date Seen: 11/01/23 Interval history: Maliha was admitted to the hospital overnight after presenting to the ER with dyspnea. She was diagnosed with extensive bilateral PEs, with concern for right heart strain on imaging. History of PE and DVT in 2022, was treated with one year of Eliquis (discontinued earlier this year). Upon admission, heparin drip was initiated. She has required supplemental oxygen; notes mild dyspnea with exertion. No chest pain. Tolerating po intake. No concerns for hospitalist team this morning. Exam Narrative: Exam Narrative: GEN: Alert and oriented, wearing OxyMask but speaking in full sentences without dyspnea HEENT: EOMIs bilaterally, no scleral icterus CV: Sinus, rate in 90-100s during exam, no concerning murmurs R: LCTA bilaterally without any rales or wheezing, air movement adequate Ext: no pitting edema BLE Skin: No concerning skin lesions or rashes on exposed skin Neuro: No focal deficits Psych: Appropriate Const: Vital Signs, click to edit/add: Vital Signs - 24 hr 10/31/23 23:54 10/31/23 23:54 11/01/23 01:15 Temperature 98.0 F Pulse Rate 113 H Pulse Rate [Left P ulse Oximeter] Pulse Rate [Pulse Oximeter] 124 H Respiratory Rate 26 H Blood Pressure Blood Pressure [Ri ght Arm] Blood Pressure [Ri ght Upper Arm] 149/78 H Pulse Oximetry 95 92 93 Oxygen Delivery Me thod OxyMask OxyMask Oxygen Flow Rate 8 5 11/01/23 01:21 11/01/23 01:42 11/01/23 01:47 Temperature Pulse Rate 113 H 110 H Pulse Rate [Left P ulse Oximeter] Pulse Rate [Pulse Oximeter] Respiratory Rate 22 Blood Pressure 127/82 122/76 Blood Pressure [Ri ght Arm] Blood Pressure [Ri ght Upper Arm] Pulse Oximetry 92 91 93 Oxygen Delivery Me thod OxyMask OxyMask Oxygen Flow Rate 5 5 11/01/23 02:01 11/01/23 02:30 11/01/23 02:47 Temperature Pulse Rate 110 H Pulse Rate [Left P ulse Oximeter] Pulse Rate [Pulse Oximeter] Respiratory Rate 20 20 Blood Pressure 120/69 Blood Pressure [Ri ght Arm] Blood Pressure [Ri ght Upper Arm] Pulse Oximetry 91 92 92 Oxygen Delivery Me thod OxyMask OxyMask OxyMask Oxygen Flow Rate 5 5 5 11/01/23 03:00 11/01/23 03:00 Temperature 98.3 F 98.3 F Pulse Rate Pulse Rate [Left P ulse Oximeter] 113 H 113 H Pulse Rate [Pulse Oximeter] Respiratory Rate 22 22 Blood Pressure Blood Pressure [Ri ght Arm] 138/76 138/76 Blood Pressure [Ri ght Upper Arm] Pulse Oximetry 92 92 Oxygen Delivery Me thod OxyMask OxyMask Oxygen Flow Rate 5 5 Labs Labs: Laboratory Results - last 24 hr 11/01/23 11/01/23 11/01/23 00:25 00:25 01:00 WBC 10.82 RBC 4.36 Hgb 11.9 L Hct 38.0 MCV 87 MCH 27 MCHC 31 L RDW Coeff of Alan 14.5 Plt Count 190 Neut % (Auto) 85.4 H Lymph % (Auto) 10.1 L Alpine % (Auto) 3.1 Eos % (Auto) 0.6 Baso % (Auto) 0.4 Neut # (Auto) 9.20 H Lymph # (Auto) 1.10 Alpine # (Auto) 0.30 Eos # (Auto) 0.06 Baso # (Auto) 0.04 Abs Immat Gran (auto) 0.04 Imm/Tot Granulo (auto) 0.4 PT Cancelled INR 0.97 Cancelled APTT 29 D-Dimer Quant (PE/DVT) 12.37 H Sodium 137 Potassium 4.3 Chloride 101 Carbon Dioxide 24 Anion Gap 12 BUN 26 Creatinine 1.1 Estimated Creat Clear 52.82 Estimated GFR 59 Glucose 248 H Lactate 3.0 H Calcium 10.1 Magnesium 1.9 Total Bilirubin 0.6 Direct Bilirubin 0.4 AST 123 H ALT 91 H Alkaline Phosphatase 101 Troponin I 0.16 H* C-Reactive Protein 1.6 H NT-Pro-B Natriuret Pep 95 Total Protein 8.0 Albumin 4.9 Procalcitonin 0.07 SARS-CoV-2 (PCR) Negative SARS-CoV-2 Influenza Type A (PCR) Negative PCR FLU A Influenza Type B (PCR) Negative PCR FLU B RSV (PCR) Negative PCR RSV POC Troponin I 0.21 H
[2023-11-01 07:56] LABS: Basophils Absolute Auto 0.03 K/uL (0.00-0.30); Basophils Percent Auto 0.4 % (0.0-3.0); Hemoglobin* 11.7 gm/dL (12.0-16.0); Immature Granulocytes Abs Auto 0.03 K/uL (0.00-0.30); Immature Granulocytes Pct Auto 0.4 %; Lymphocytes Percent Auto 13.7 % (20-44); Mean Corpuscular HGB Conc 32 gm/dL (32-36); Mean Corpuscular Hemoglobin 27 pg (26-34); Mean Corpuscular Volume 86 fL (80-100); Monocytes Percent Auto 3.1 % (0.0-11.0); Neutrophils Percent Auto 82.4 % (42.0-72.0); Platelet Count* 230 K/uL (140-440); RDW Coefficient of Variation % 14.5 % (11.5-15.5); Red Blood Count 4.32 m/uL (4.00-5.20); White Blood Count* 8.41 K/uL (4.50-11.00)
[2023-11-01 07:58] LABS: Chloride* 105 mmol/L (96-114); Slide Review Reflex No
[2023-11-01 07:59] LABS: Potassium* 4.6 mmol/L (3.6-5.1); Sodium* 138 mmol/L (135-149)
[2023-11-01 08:01] LABS: Creatinine* 0.8 mg/dL (0.5-1.5); Est. Creatinine Clearance* 72.63; Estimated Glomerular Filt Rate 86 ml/min
[2023-11-01 08:02] LABS: Anion Gap 10 mEq/L (7-15); Blood Urea Nitrogen* 23 mg/dL (7-30); Calcium* 10.1 mg/dL (8.4-10.6); Carbon Dioxide* 23 mmol/L (20-32); Glucose* 222 mg/dL (60-115)
[2023-11-01 08:03] LABS: Partial Thromboplastin Time* > 180 Seconds (23-33)
[2023-11-01 08:17] LABS: Troponin I* 0.41 ng/mL (0.01-0.04)
--- NOTE | 2023-11-01 09:40 | CRLHL7_ITS ---
For Patients: As a result of the Century Cures Act, medical imaging exams and procedure reports are released immediately into your electronic medical record. You may view this report before your referring provider. If you have questions, please contact your health care provider. INDICATION: PE, evaluate for DVT COMPARISON: CT 11/01/2023. Ultrasound 11/30/2022 TECHNIQUE: A compression venous ultrasound exam was performed of both lower extremities using johnson scale imaging, color Doppler and spectral Doppler analysis. FINDINGS: Hypoechoic noncompressible clot is present within the left popliteal vein extending to the mid posterior tibial veins. Some color flow is present within the popliteal veins with absent flow in the popliteal vein. The remainder of the left lower extremity is clear of DVT. No DVT within the right lower extremity. Normal compressibility and Doppler flow regarding the right lower leg vessels. IMPRESSION: Positive exam for DVT within the left popliteal vein extending to the mid posterior tibial veins. No DVT within the right lower extremity. Dictated by Gomez Graham MD @ 11/01/2023 1:31:15 PM (Electronically Signed)
[2023-11-01] MEDS: APIXABAN 5 MG TABLET 10 MG PO ×2 (09:53→21:35)
[2023-11-01] MEDS: SODIUM CHLORIDE 0.9 % (FLUSH) 10 ML SYRINGE 5 ML IVF ×2 (09:53→21:38)
--- NOTE | 2023-11-01 10:11 | NUTR.NU ---
RDN with diet education related to diet order. Patient admitted for respiratory failure and pulmonary embolism. Past medical history significant for Type 2 diabetes mellitus. Current diet is Diabetic 1800 kcal. Current weight 291 lb 7.57oz; height 5ft 6in; BMI 47.0 kg/m2. No meal intakes anastasia to assess. RDN visited with patient whom reports she tries to eat a balanced diet at home. She reports a stable weight recently. RDN offered diet education related to diet order, however patient declined at this time. RDN encouraged patient to inform staff of any questions or concerns she may have. RDN to follow up as needed.
[2023-11-01] MEDS: PERFLUTREN LIPID MICROSPHERES 2 ML VIAL IV (11:53)
[2023-11-01 13:42] LABS: Troponin I* 0.32 ng/mL (0.01-0.04)
[2023-11-01] MEDS: INSULIN ASPART 100 UNIT/ML SUBCUT ×2 (17:23→21:40)
--- NOTE | 2023-11-01 18:46 | PC.NURSE ---
(Shift 15-19) Pt alert and oriented. Pt SBA. Pt had no complaints of pain. Pt was on 10 Liters via the oximask at beginning of shift; Pt titrated down to 7 Liters and tolerated well with oxygen saturation 90-94%.Pt was brought an aerobika and educated on it. Per RT Pt should be 90% or higher and ideally in the mid 90?s range for oxygen saturations.?
[2023-11-02] VITALS (10 sets, daily range): BP systolic 111–150; BP diastolic 75–82; PULSE 89–108; RESP 16–18; TEMP 36.6–37.1; O2SAT 90–95
[2023-11-02] MEDS: ALBUTEROL INHALER 2 PUFF IH ×4 (03:57→21:23)
[2023-11-02 07:06] LABS: Albumin* 4.3 g/dL (3.3-5.0)
[2023-11-02 07:07] LABS: Basophils Absolute Auto 0.05 K/uL (0.00-0.30); Basophils Percent Auto 0.7 % (0.0-3.0); Chloride* 104 mmol/L (96-114); Eosinophils Absolute Auto 0.07 K/uL (0.00-0.50); Hematocrit 33.7 % (33.0-51.0); Hemoglobin* 10.7 gm/dL (12.0-16.0); Immature Granulocytes Abs Auto 0.02 K/uL (0.00-0.30); Immature Granulocytes Pct Auto 0.3 %; Lymphocytes Absolute Auto 1.95 K/uL (0.90-2.90); Lymphocytes Percent Auto 29.1 % (20-44); Mean Corpuscular HGB Conc 32 gm/dL (32-36); Mean Corpuscular Hemoglobin 28 pg (26-34); Mean Corpuscular Volume 87 fL (80-100); Monocytes Percent Auto 5.8 % (0.0-11.0); Neutrophils Absolute Auto 4.21 K/uL (1.7-7.0); Neutrophils Percent Auto 63.1 % (42.0-72.0); Platelet Count* 194 K/uL (140-440); Potassium* 4.1 mmol/L (3.6-5.1); RDW Coefficient of Variation % 14.7 % (11.5-15.5); Red Blood Count 3.88 m/uL (4.00-5.20); Sodium* 138 mmol/L (135-149); White Blood Count* 6.69 K/uL (4.50-11.00)
[2023-11-02 07:09] LABS: Anion Gap 10 mEq/L (7-15); Aspartate Amino Transferase* 43 U/L (12-35); Bilirubin Total* 0.6 mg/dL (0.1-1.5); Carbon Dioxide* 24 mmol/L (20-32); Creatinine* 0.9 mg/dL (0.5-1.5); Est. Creatinine Clearance* 64.56; Estimated Glomerular Filt Rate 75 ml/min; Total Protein* 7.1 g/dL (6.0-8.3)
[2023-11-02 07:10] LABS: Alanine Aminotransferase* 60 U/L (4-35); Alkaline Phosphatase* 81 U/L (40-150); Blood Urea Nitrogen* 23 mg/dL (7-30); Calcium* 9.4 mg/dL (8.4-10.6); Glucose* 197 mg/dL (60-115)
[2023-11-02 07:27] LABS: Slide Review Reflex No
[2023-11-02] MEDS: INSULIN ASPART 100 UNIT/ML SUBCUT ×4 (08:17→21:21)
--- NOTE | 2023-11-02 08:45 | PC.NURSE ---
End of shift note ([id number]): Patient pleasant, alert and oriented. Ambulates with stand by assist. Reported pain in her lungs posteriorly when she breathes or changes position. She describes her pain as feeling ?Like sore muscles.? O2 sats 93% on 7Lpm O2 with oximizer mask. VSS.?
[2023-11-02] MEDS: APIXABAN 5 MG TABLET 10 MG PO ×2 (08:55→21:17)
[2023-11-02] MEDS: SODIUM CHLORIDE 0.9 % (FLUSH) 10 ML SYRINGE 5 ML IVF ×2 (08:55→21:18)
--- NOTE | 2023-11-02 14:53 | PM.IMPN1 ---
Progress Note: A&P Assessment and plan (1) Pulmonary embolism: Problem details: - h/o RLE DVT and PE in 2022, treated with one year of Eliquis - previously negative hypercoagulable workup - recurrent extensive bilateral PE on chest CTA 11/01/23 with concern of R heart strain - notably elevated troponin (sinus tachycardia on EKG and telemetry) - heparin gtt initiated on admission 10/30; transitioned to oral Eliquis on 10/31 - TTE Llamas sign suggestive of acute large pulmonary embolism. Decreased RV function with increased RV size consistent with pulmonary embolism. - BLE ultrasounds obtained and demonstrate DVT on left lower extremity extending from tibial veins to the popliteal veins, right side without DVT. Status: Acute (2) Respiratory failure: Problem details: - requiring supplemental oxygen still, RT consulted Status: Acute (3) Primary hypertension: Problem details: - holding home Atenolol, HCTZ, and Lisinopril given lower BPs Status: Acute (4) Type 2 diabetes mellitus, without long-term current use of insulin: Problem details: - last A1C 7.0 on 02/2023 Status: Acute (5) Fibromyalgia: Status: Acute (6) Elevated LFTs: Problem details: - mild, potentially related to right heart strain, continue to follow Status: Acute Plan 1. Reviewed impression with patient 2. Answered her questions 3. Patient agreeable with above stated plans and recommendations. Too early to consider discharge home at this time. Time Spent With Patient Total time spent: 35 minutes Subjective Date Seen: 11/02/23 Interval history: Maliha was admitted to the hospital overnight after presenting to the ER with dyspnea. She was diagnosed with extensive bilateral PEs, with concern for right heart strain on imaging. History of PE and DVT in 2022, was treated with one year of Eliquis (discontinued earlier this year). Upon admission, heparin drip was initiated. She continues to require supplemental oxygen; notes mild dyspnea with exertion. No chest pain. Tolerating po intake. Hospital day 2. Generally feels improved. Less weakness, dizziness, and dyspnea with exertion. Tolerating increased activities. Exam Narrative: Exam Narrative: Examine her in her hospital room. Appears comfortable in no acute distress. Still required oxygen support. Lungs are clear to auscultation. Heart tones with regular rhythm. Abdomen is obese with active bowel sounds, soft, nontender. Extremities without edema. Independent transfer, station, and gait. Const: Vital Signs, click to edit/add: Vital Signs - 24 hr 11/01/23 15:10 11/01/23 15:10 11/01/23 20:00 Temperature 97.6 F 97.5 F L Pulse Rate Pulse Rate [Left P ulse Oximeter] 103 H 106 H Respiratory Rate 18 18 18 Blood Pressure [Ri ght Arm] 111/70 126/81 Pulse Oximetry 92 93 Oxygen Delivery Me thod OxyMask OxyMask Oxygen Flow Rate 10 11/01/23 22:37 11/01/23 23:00 11/02/23 01:47 Temperature 98.0 F Pulse Rate 86 Pulse Rate [Left P ulse Oximeter] 96 Respiratory Rate 19 Blood Pressure [Ri ght Arm] 104/65 Pulse Oximetry 92 92 Oxygen Delivery Me thod OxyMask Oxygen Flow Rate 11/02/23 03:00 11/02/23 07:00 11/02/23 07:00 Temperature 97.8 F 98.2 F Pulse Rate 89 Pulse Rate [Left P ulse Oximeter] 101 H 90 Respiratory Rate 17 16 Blood Pressure [Ri ght Arm] 119/75 111/80 Pulse Oximetry 93 95 Oxygen Delivery Me thod OxyMask Room Air Oxygen Flow Rate 7 11/02/23 11:03 Temperature 98.4 F Pulse Rate Pulse Rate [Left P ulse Oximeter] 102 H Respiratory Rate 18 Blood Pressure [Ri ght Arm] 127/79 Pulse Oximetry 91 Oxygen Delivery Me thod Nasal Cannula Oxygen Flow Rate 2.5 Labs Labs: Laboratory Results - last 24 hr 11/02/23 06:05 WBC 6.69 RBC 3.88 L Hgb 10.7 L Hct 33.7 MCV 87 MCH 28 MCHC 32 RDW Coeff of Alan 14.7 Plt Count 194 Neut % (Auto) 63.1 Lymph % (Auto) 29.1 Martin % (Auto) 5.8 Eos % (Auto) 1.0 Baso % (Auto) 0.7 Neut # (Auto) 4.21 Lymph # (Auto) 1.95 Martin # (Auto) 0.40 Eos # (Auto) 0.07 Baso # (Auto) 0.05 Abs Immat Gran (auto) 0.02 Imm/Tot Granulo (auto) 0.3 Sodium 138 Potassium 4.1 Chloride 104 Carbon Dioxide 24 Anion Gap 10 BUN 23 Creatinine 0.9 Estimated Creat Clear 64.56 Estimated GFR 75 Glucose 197 H Calcium 9.4 Total Bilirubin 0.6 AST 43 H ALT 60 H Alkaline Phosphatase 81 Total Protein 7.1 Albumin 4.3
--- NOTE | 2023-11-02 16:39 | PC.NURSE ---
Shift Summary: Patient pleasant and cooperative. Up with SBA. O2 @ 1L/NC, 2-3L/NC when ambulating in halls. Up frequently to walk, o2 sats monitored while ambulating and able to maintain >90% on 2-3L. Patient becomes tachycardic with exertion, denies SOB or pain. Tolerating regular diet. Encouraged to use aerobika frequently.
[2023-11-03 01:30] VITALS: O2SAT 95
[2023-11-03 01:40] VITALS: PULSE 84
[2023-11-03 04:24] VITALS: BP 117/76; PULSE 80; RESP 16; TEMP 36.9; O2SAT 97
[2023-11-03] MEDS: ALBUTEROL INHALER 2 PUFF IH ×2 (04:28→09:56)
--- NOTE | 2023-11-03 06:39 | PC.NURSE ---
End of shift note ([id number]): Patient pleasant, alert and oriented. Ambulates with stand by assist. C/O having a headache, reporting?it feels like I need to get some sleep. C/O discomfort in upper back that was described as feeling like muscle soreness. Warm blanket wrap helped with back discomfort. Remained on nasal cannula during the night. O2 sats 98% on 4 Lpm last evening. O2 titrated down. O2 95% on 0.5 LPM via NC at this time. ?Denied feeling SOB.?Intermittent cough noted at night. Patient reports cough is due to postnasal drip. VSS.?
[2023-11-03 07:26] VITALS: PULSE 89
[2023-11-03 07:43] VITALS: BP 119/78; PULSE 83; RESP 18; TEMP 36.7; O2SAT 98
[2023-11-03 08:18] LABS: HCO3 VBG 28 mmol/L (21-28); PCO2 VBG 47 mmHG (40-50); pH VBG 7.377 (7.32-7.43)
[2023-11-03 08:24] LABS: Hematocrit 35.3 % (33.0-51.0); Hemoglobin* 11.1 gm/dL (12.0-16.0); Mean Corpuscular HGB Conc 31 gm/dL (32-36); Mean Corpuscular Hemoglobin 27 pg (26-34); Mean Corpuscular Volume 87 fL (80-100); Platelet Count* 212 K/uL (140-440); Red Blood Count 4.05 m/uL (4.00-5.20); White Blood Count* 6.16 K/uL (4.50-11.00)
[2023-11-03 08:27] LABS: Slide Review Reflex No
[2023-11-03] MEDS: INSULIN ASPART 100 UNIT/ML SUBCUT (08:41)
[2023-11-03] MEDS: LORATADINE 10 MG TABLET PO (08:42)
[2023-11-03] MEDS: atenoloL 50 MG TABLET PO (08:42)
[2023-11-03] MEDS: APIXABAN 5 MG TABLET 10 MG PO (08:44)
[2023-11-03] MEDS: SODIUM CHLORIDE 0.9 % (FLUSH) 10 ML SYRINGE 5 ML IVF (08:44)
[2023-11-03 08:56] LABS: Procalcitonin* 0.07 ng/mL (<0.50)
[2023-11-03 11:38] VITALS: BP 126/71; PULSE 82; RESP 18; TEMP 36.8; O2SAT 95
--- NOTE | 2023-11-03 13:50 | PM.DS1 ---
DS: Providers Provider Date Seen: 11/03/23 Date of admission: 11/01/23 02:12 Primary care physician: Antonina Gaston PA-C Admitting Clinician: Jose Dunn DO Consults: 11/01/23 09:50 Consult to Respiratory Therapy [CONS] Routine Comment: Reason(s) for RT Consult:: Consult Comment: hypoxia, B PEs Attending Physician on discharge: Shaun Kiser MD Date of Discharge: 11/03/23 DS: Diagnosis Discharge Diagnosis (1) Pulmonary embolism: Status: Acute Problem details: - h/o RLE DVT and PE in 2022, treated with one year of Eliquis - previously negative hypercoagulable workup - recurrent, unprovoked extensive bilateral PE on chest CTA 11/01/23 with concern of R heart strain - notably elevated troponin (sinus tachycardia on EKG and telemetry) - heparin gtt initiated on admission 10/30; transitioned to oral Eliquis on 10/31 - TTE Llamas sign suggestive of acute large pulmonary embolism. Decreased RV function with increased RV size consistent with pulmonary embolism. - BLE ultrasounds obtained and demonstrate DVT on left lower extremity extending from tibial veins to the popliteal veins, right side without DVT. - will likely warrant lifelong anticoagulation hereafter. Continue to work with her primary care physician and outside residential sales professional in outpatient setting. - recommended she use an alert bracelet or necklace indicating she is chronically anticoagulated hereafter. (2) Elevated troponin: Status: Acute Problem details: - likely 2/2 demand ischemia (PEs, cardiac strain) - follow to peak, TTE ordered for 10/31 (3) Elevated LFTs: Status: Acute Problem details: - mild, potentially related to right heart strain, continue to follow (4) Respiratory failure: Status: Acute Problem details: - requiring supplemental oxygen still, RT consulted (5) Adjustment disorder with anxiety: Status: Acute Problem details: - she is struggling with her diagnosis of recurrent, unprovoked pulmonary embolism and need for lifelong support and management hereafter. (6) Primary hypertension: Status: Acute Problem details: - holding home Atenolol, HCTZ, and Lisinopril given lower BPs (7) Type 2 diabetes mellitus, without long-term current use of insulin: Status: Acute Problem details: - last A1C 7.0 on 02/2023 (8) Fibromyalgia: Status: Acute DS: Summary Hospital Course Hospital Course: Admission history of present illness: ?Maliha Peres is a 57 year old male who is Seen in her hospital room with the assistance of nursing staff. Her is present during the interview and exam. She has been admitted through the emergency room. She tells me over the last couple days she has been having pain in her left lower extremity. A little bit short of breath today she became very suddenly short of breath to the point that she could hardly walk paramedics were called she was brought into the emergency room. About a year ago she was diagnosed with a pulmonary embolism. She was worked up for hypercoagulable state by hematology oncology which was negative. She was treated with Eliquis. This was discontinued. She does have a father who sounds like may have lupus anticoagulant. Nevertheless she came to the emergency room was evaluated and found to have a fairly substantial clot on both sides possible heart strain on CT scan. She has now been admitted for further evaluation and treatment. She is currently requiring 5 L of oxygen. She also complains of a cough which she states she has had for months. No fevers no chills no chest pain per se a little bit of chest heaviness. She does not have any other concerns.? While in hospital we re-initiated anticoagulation with apixaban 10 mg twice daily. Patient required low-flow oxygen via nasal cannula the 1st few days of her hospitalization in until such time as she was able to maintain her oxygen saturations greater than 90% at rest and with activity. For details please see the above stated diagnosis and management efforts associated there with. Time Spent with Patient Time attestation: Total time spent providing and/or coordinating discharge services: Exam Narrative: Exam Narrative: Examined her in her hospital room. Appears comfortable in no acute distress. Acknowledges fear and anxiety about her condition presently and into the future. Trusts her primary acute care occupational therapist and looks forward to continue to work with her. She is no longer requiring oxygen support. Lungs are clear to auscultation. Heart tones with regular rhythm. Abdomen is obese with active bowel sounds, soft, nontender. Extremities without edema. Independent transfer, station, and gait. Const: Vital Signs, click to edit/add: Vital Signs - 24 hr 11/02/23 15:00 11/02/23 15:28 11/02/23 19:00 Temperature 98.3 F 98.7 F Pulse Rate 99 Pulse Rate [Left P ulse Oximeter] 108 H 95 Respiratory Rate 18 17 Blood Pressure [Ri ght Arm] 150/81 H 143/79 H Pulse Oximetry 92 95 Oxygen Delivery Me thod Nasal Cannula Nasal Cannula Oxygen Flow Rate 1 1.5 11/02/23 22:23 11/02/23 22:55 11/02/23 23:14 Temperature 98.4 F Pulse Rate Pulse Rate [Left P ulse Oximeter] 93 Respiratory Rate 17 Blood Pressure [Ri ght Arm] 129/82 Pulse Oximetry 94 90 94 Oxygen Delivery Me thod Nasal Cannula Nasal Cannula Oxygen Flow Rate 1.5 2.5 11/03/23 01:30 11/03/23 01:40 11/03/23 04:24 Temperature 98.5 F Pulse Rate 84 Pulse Rate [Left P ulse Oximeter] 80 Respiratory Rate 16 Blood Pressure [Ri ght Arm] 117/76 Pulse Oximetry 95 97 Oxygen Delivery Me thod Nasal Cannula Nasal Cannula Oxygen Flow Rate 3 2 11/03/23 07:26 11/03/23 07:43 11/03/23 07:43 Temperature 98.1 F Pulse Rate 89 Pulse Rate [Left P ulse Oximeter] 83 Respiratory Rate 18 Blood Pressure [Ri ght Arm] 119/78 Pulse Oximetry 98 98 Oxygen Delivery Me thod Nasal Cannula Oxygen Flow Rate 0.5 11/03/23 11:38 Temperature 98.3 F Pulse Rate Pulse Rate [Left P ulse Oximeter] 82 Respiratory Rate 18 Blood Pressure [Ri ght Arm] 126/71 Pulse Oximetry 95 Oxygen Delivery Me thod Room Air Oxygen Flow Rate DS: Data Data Completed and Pending Labs on day of discharge: Labs from last 24 hours 11/03/23 08:00 WBC 6.16 RBC 4.05 Hgb 11.1 L Hct 35.3 MCV 87 MCH 27 MCHC 31 L Plt Count 212 VBG pH 7.377 VBG pCO2 47 VBG pO2 31.0 VBG HCO3 [address] scan - chest: Attestation: I have reviewed the pertinent imaging results. Radiologist's impression: 1. Extensive bilateral pulmonary emboli with evidence of right heart strain. 2. Findings were discussed with Dr. Oden by Dr. Ji on 11/01/2023 at 01:29 AM. 3. Air trapping, likely secondary to small airways disease. Venous US: Radiologist's impression: Positive exam for DVT within the left popliteal vein extending to the mid posterior tibial veins. No DVT within the right lower extremity. Discharge Plan Discharge Disposition: Home, Self-Care Date of Admission: 11/01/23 02:12 Attending Provider on Discharge: Shaun Kiser Primary Care Provider: Antonina Gaston Condition: Stable Anticipated Discharge Date/Time: 11/03/23 17:00 Discharge Medications: New loratadine 10 mg Tablet 10 mg PO DAILY 30 Days Qty: 30 1RF Eliquis 5 mg Tablet 10 mg PO BID Qty: 60 1RF Continued metformin 750 mg tablet extended release 24 hr 1,500 mg PO QPM atenolol 50 mg tablet 50 mg PO DAILY Held hydrochlorothiazide 25 mg tablet 25 mg PO DAILY Hold Instructions: Resume on 11/17/23. lisinopril 40 mg tablet 40 mg PO DAILY Hold Instructions: Resume on 11/17/23. Discharge Orders: Discharge Order (Routine); Ordered 11/03/23 Ordered By: Shaun Kiser Patient Education: Loratadine (By mouth), Apixaban (By mouth) (Eliquis), Hypercoagulation (DC) Additional Instructions: 1. Follow-up with Antonina Gaston PA-C, next 3-5 days; 2. Return t clinic or hospital ED sooner if needed; 3. No work until 11/11/2023; 4. Resume work for only 2 hours per day on Saturday11/11/23 for 5 days, with additional work hardening adjustments per your primary acute care occupational therapist/partners thereafter. Activity Level: Activity as Tolerated Activity Detail: 1. Avoid high impact activities; 2. Minimize risk for skin cuts, abrasions, bruises; 3. Gradually increase activity to usual activity level over the course of the next 5-10 days; 4. Avoid massage therapy to left leg for next 14 days - may perform gentle stretching exercises. Discharge Diet: Diabetic and 2 gm Sodium Follow Up Appointments: Antoinette Sheehan [Other] - 11/14/23 10:35 am Antoinette Sheehan PA-C [Referring] - Antonina Gaston PA-C [Primary Care Provider] - Andres Delvalle MD [Referring] - None () Forms: [employer] Info Instructions
--- NOTE | 2023-11-03 17:59 | PC.NURSE ---
Pt alert and oriented. Pt has no complaints of pain. Pt up independently in room. Pt weaned from 0.5 Liters of oxygen to RA and tolerated well maintaining saturations of 91-96%. No SOB. Pt's IV's removed; catheters intact. Pt discharged home with .
== END 2023-11-03 14:57 | disposition home or self-care (01) | DRG 134 ==
LOC: ED 11-01 01:38 → MEDSURG 11-01 02:14
PROVIDERS: Family Medicine; Internal Medicine; Admitting Provider Internal Medicine; Emergency Provider Family Medicine; PCP Physician Assistant Medical; Visit Provider Internal Medicine
DX: I26.99 Other pulmonary embolism without acute cor pulmonale (principal); I82.432 Acute embolism and thrombosis of left popliteal vein; I82.442 Acute embolism and thrombosis of left tibial vein; J96.01 Acute respiratory failure with hypoxia; I24.89 Other forms of acute ischemic heart disease; E11.9 Type 2 diabetes mellitus without complications; I10 Essential (primary) hypertension; Z79.4 Long term (current) use of insulin; R79.89 Other specified abnormal findings of blood chemistry; F43.22 Adjustment disorder with anxiety; M79.7 Fibromyalgia; Z86.718 Personal history of other venous thrombosis and embolism; Z86.711 Personal history of pulmonary embolism
CPT/HCPCS: 36415; 71275; 80048; 80053; 80076; 82803; 82962; 83605; 83735; 83880; 84145; 84484; 85025; 85027; 85379; 85610; 85730; 86140; 87631; 93005; 93306; 93970; 94664; 94761; 99284; 99285; A9270; J1644; Q9957; Q9967

== ENCOUNTER 2024-04-15 20:55 | Emergency (ER) | payer BC, SELFPAY ==
--- OUTSIDE RECORDS SUMMARY | 2024-04-15 20:57 | XMS_ITS | Clinical Summary ---
Author Organization [employer] [facility] Address [place], [place] [address] Care Team Providers Care Transportation Supervisor Name Role Phone Antonina Gaston Primary Care Provider Terri Dubose MD Unavailable [phone] Allergies Active Allergy Reactions Criticality Noted Date Comments Penicillins Sulfa (Sulfonamide Antibiotics) Tizanidine *Unknown 11/19/2022 Medications chromium picolinate 200 mcg tablet Take 200 mcg by mouth once daily. 0 1 Active ORDER - MEDICATION ORDER COMPOSER Adrenogen - 2 per day 0 1 Active ORDER - MEDICATION ORDER COMPOSER Metagest - one per day 0 1 Active multivitamin (MVI) tablet Take 1 Tablet by mouth once daily. 0 4 Active magnesium 250 mg tab Take 1 tablet by mouth once daily. 0 5 Active Lactobacillus Acidophilus cap Take by mouth two times daily. Takes 3 per day (split into two doses). Patient taking 2 different probiotics each 1 tab 3 times a day 0 5 Active potassium-calci kl-nsixjj-obdzh [id number] mg pwpk Mix in liquid then take by mouth two times daily. 0 6 Active cholecalciferol , Vitamin D3, 5,000 unit tab tablet Take 1 tablet by mouth once daily. 0 8 Active turmeric root extract 500 mg cap Take 500 mg by mouth once daily. 0 9 Active bgntv-hd-4-dha- qas-jmuzddn-txj 556-06-15-45 mg cap Take 1 Capsule by mouth once daily. 0 9 Active blood sugar diagnostic (CONTOUR NEXT TEST STRIPS) stripIndication s:Controlled type 2 diabetes mellitus without complication, without long-term current use of insulin (HC) Contour NEXT strips. Test 3 times per week 50 Strip 12 0 Active lancets (MICROLET LANCET)Indicati ons:Controlled type 2 diabetes mellitus without complication, without long-term current use of insulin (HC) For testing blood sugars at home 3 times per week 100 Each 12 0 Active Black Cohosh 540 mg capsule Take 540 mg by mouth three times daily. 0 1 Active Saccharomyces boulardii (FLORASTOR) 250 mg capsule Take by mouth two times daily. Takes 3 per day (split into 2 doses) Not taking 0 1 Active ascorbic acid chewable (VITAMIN C) 500 mg tablet Chew 500 mg by mouth once daily. Active loratadine (CLARITIN) 10 mg tablet Take 10 mg by mouth once daily. Active apixaban (Eliquis) 5 mg tabletIndicatio ns:Bilateral pulmonary embolism (HC) Take 1 Tablet (5 mg) by mouth two times daily. 60 Tablet 5 4 Active metFORMIN (GLUCOPHAGE XR) 750 mg Extended-Releas e tabletIndicatio ns:Controlled type 2 diabetes mellitus without complication, without long-term current use of insulin (HC) Take 2 Tablets (1,500 mg) by mouth once daily with evening meal. 180 Tablet 3 4 Active lisinopriL (PRINIVIL; ZESTRIL) 40 mg tabletIndicatio ns:Hypertension , unspecified type Take 1 Tablet (40 mg) by mouth once daily. 90 Tablet 3 4 Active atenoloL (TENORMIN) 50 mg tabletIndicatio ns:HTN (hypertension) Take 1 Tablet (50 mg) by mouth once daily. 90 Tablet 3 4 Active hydroCHLOROthia zide 25 mg tabletIndicatio ns:HTN (hypertension) Take 1 Tablet (25 mg) by mouth once daily. 90 Tablet 3 4 Active sensor (FreeStyle Jemal 3 Sensor) for continuous blood glucose monitor (CGM)Indication s:Controlled type 2 diabetes mellitus without complication, without long-term current use of insulin (HC) To be used to read blood sugars, change sensor every 14 days. 6 Each 3 4 Active inspector of dredging (FreeStyle Jemal 3 [place]) for continuous blood glucose monitor (CGM)Indication s:Controlled type 2 diabetes mellitus without complication, without long-term current use of insulin (HC) To be used to read blood sugars follow sap manager directions. 1 Each 4 Active sodium chloride (Gulf Nasal [place]) 0.65 % nasal solutionIndicat ions:Nasal dryness Inhale 1 [place] into affected nostril(s) every hour if needed for Nasal Dryness. 45 mL 11 4 Active fluticasone furoate (Flonase Sensimist) 27.5 mcg/actuation nasal sprayIndication s:Nasal congestion Inhale 1 [place] in both nostrils once daily. 9.1 mL 4 Active Active Problems Problem Noted Date Diagnosed Date Cervical cancer screening 02/24/2024 Overview (02/24/2024): 02/2024 NIL/HPV negative. Plan: Pap/HPV due 02/2029. Left adrenal mass 05/05/2022 Acute pulmonary embolism 05/03/2022 Controlled type 2 diabetes m ellitus without complication, without long-term current use of [...] Resolved Date Vitamin D deficiency 05/18/2009 012 Encounters Date Type Department Care Team Description 04/06/2024 2:00 PM CO FOUNDER AND PRESIDENT - 04/06/2024 11:59 PM CO FOUNDER AND PRESIDENT Hospital Encounter [facility] [address] [place] [address] Antonina Gaston PA SOB (shortness of breath); Chronic cough 04/06/2024 Travel 03/02/2024 Telephone [facility] [address] [facility] [place] [address] Antonina Gaston PA 02/28/2024 Telephone [facility] [address] [place] [address] Antonina Gaston PA Form 02/19/2024 3:30 PM CO FOUNDER AND PRESIDENT Office Visit [facility] [address] [place] [address] Antoinette Esparza PA Consult (Plugged ears/Seasonal allergies/Allergic rhinitis, unspecified seasonality, unspecified trigger/Nasal congestion ) 02/19/2024 3:00 PM CO FOUNDER AND PRESIDENT Office Visit [facility] [address] [place] [address] Shilpa Yancey AuD Hearing Problem (Hearing test) 02/19/2024 Travel 02/14/2024 10:30 AM CO FOUNDER AND PRESIDENT Office Visit [facility] [address] [place] [address] Antonina Gaston PA Physical (58 years old); Follow Up (Follow up on blood work / return to work??) 02/14/2024 Travel 02/10/2024 8:45 AM CO FOUNDER AND PRESIDENT Orders Only [facility] [address] [place] [address] Lab, [facility] 02/10/2024 Travel 01/31/2024 Orders Only [address] [address] Antonina Gaston PA Lab (Orders entered) 01/22/2024 1:20 PM CDT Office Visit [facility] [address] [place] [address] Antonina Gaston PA Sinus Problem (Sinus infection. Feeling pressure under eyes and going to the ears. Started evening. ); Form (Forms for [employer] disability. Wants to extend her FMLA request ) 01/22/2024 Travel 01/22/2024 Telephone [facility] [address] [facility] [place] [address] Antonina Gaston PA Prior Authorization (inspector of dredging (Tbricks Jemal 3 [place]) for continuous blood glucose monitor (CGM) (Approved Through 01/21/2025)) 01/15/2024 Telephone [facility] [address] [place] [address] Antonina Gaston PA Form from Last 3 Months Immunizations Name Administration Dates Next Due AMB Influenza, IIV3 (Age >=3 years)(Flu Clinic Only) 01/11/2009 AMB Influenza, IIV4 PF (=>6 mos Flulaval,Fluzone Fluarix)(Flu Clinic Only) 01/11/2014 COVID-19 VACCINE SPIKEVAX (M ODERNA 50MCG/0.5ML) 12YO+ PFS 12/25/2023,02/08/2023 COVID-19 vaccine (BitcastBio NTech 30mcg/0.3mL) 12YO+ BIVALENT PF, MDV 02/07/2022 DT (Age < 7 years) 06/26/1989 INFLUENZA, IIV3 PF (AGE >= 6 MO) 12/25/2023 Influenza A (H1N1), Inactiva eva (Age >=3 [...] Never Smokeless Tobacco: Never Tobacco Cessation:Counseling Given: No Alcohol Use Standard Drinks/Week Comments No 0 (1 standard drink = 0.6 oz pur e alcohol) very seldom C Utilities Answer Date Recorded Do you have trouble paying f or utilities (for example, heat, electricity, water, phone)? Yes 11/05/2023 PHQ-2 Answer Date Recorded PHQ-2 TOTAL SCORE 0 01/22/2024 Social Connections Answer Date Recorded Do you often feel lonely or isolated from those around you? 0 11/05/2023 Financial Resource Strain Answer Date R ecorded Difficulty of Paying Living Expenses 3 11/05/2023 Difficulty of Paying Living Expenses Not on file 11/05/2023 Food Insecurity Answer Date Recorded Do you worry your food will run out before you are able to buy more? 1 11/05/2023 Transportation Needs Answer Date Record ed Does lack of transportation keep you from medica l appointments? 1 11/05/2023 Does lack of transportation keep you from work, meetings or getting things that you need? 1 11/05/2023 Housing Stability Answer Date Recorded What is your housing situation today? 1 11/05/2023 Comments No Sex and Gender Information Value Date Recorded Sex Assigned at Not on file Legal Sex Female 7:09 AM CO FOUNDER AND PRESIDENT Gender Identity Not on file Sexual Orientation Not on file Occupation Industry Job Start Date Job End Date Not on file Not on file Not on file Not on file Obstetrics History Para Term AB IAB SAB Ectopic Multiple Livin g Live Births 3 2 2 1 1 2 Date Outcome GA Total Labor Labor/2nd/3rd Weight Sex Type Anes PTL Belle A1 A5 Name Clin SAB Term Term Last Filed Vital Signs Vital Sign Reading Time Taken Comments Blood Pressure 119/75 02/14/2024 10:26 AM CO FOUNDER AND PRESIDENT Pulse 73 02/14/2024 10:26 AM CO FOUNDER AND PRESIDENT Temperature 36.6 C (97.9 F) 06/04/2023 2:56 PM CO FOUNDER AND PRESIDENT Respiratory Rate 16 06/04/2023 2:56 PM CO FOUNDER AND PRESIDENT Oxygen Saturation 96% 02/14/2024 10:26 AM CO FOUNDER AND PRESIDENT Inhaled Oxygen Concentration - - Weight 126 kg (277 lb 12.8 oz) 02/14/2024 10:26 AM CO FOUNDER AND PRESIDENT Height 167.6 cm (5' 6) 02/14/2024 10:26 AM CO FOUNDER AND PRESIDENT Body Mass Index 44.84 02/14/2024 10:26 AM CO FOUNDER AND PRESIDENT Plan of Treatment Upcoming Encounters Date Type Department Care Team (Late st Contact Info) Description 04/17/2024 9:10 AM CO FOUNDER AND PRESIDENT Office Visit [facility] [address] [place] [address] Antonina Gaston PA [address] [place] [address] 05/18/2024 3:20 PM CO FOUNDER AND PRESIDENT Office Visit [facility] [address] [place] [address] Antonina Gaston PA [address] [place] [address] Health Maintenance Due Date Last Done Comments HIV for age 15-65 1980 Hepatitis C screening for ag e 18-79 11/29/1983 Hepatitis B series for Diabe karla (1 of 3 - 19+ 3-dose series) 1984 Pneumococcal series for age 50+ (1 of 2 - PCV) 1984 Colonoscopy through age 75 2010 Zoster (shingles) series for age 50+ (1 of 2) 11/29/2015 Mammogram for age 45-75 11/21/2024 11/22/19 24, 02/28/2022, 01/20/2021, Additional history exists Depression screening for age 12+ 01/21/2025 01/22/2024, 01/22/2024, 01/05/2020, Additional history exists BMI (ht and wt on same day) for age 18+ 02/13/2025 02/14/2024, 02/08/2023, 02/07/2022, Additional history exists Lipids for age 45-75 02/09/2029 02/10/2024, 02/08/2023, 01/22/2022, Additional history exists Pap test for age 21-65 02/13/2029 , 12/12/2018, 12/12/2018, Additional history exists Tetanus booster 01/20/2031 01/20/2021, 05/09, 10/18/2000 Tdap Completed 05/22/2010 COVID-19 vaccine series Completed 12/25/19 24, 02/08/2023, 02/07/2022, Additional history exists Influenza for age 50-64 Completed 12/25/19 24, 02/08/2023, 02/07/2022, Additional history exists Procedures Procedure Name Priority Date/Time Associated Diagnosis Comments COMPLETE PULMONARY FUNCTION TEST WITH BRONCHODILATOR Routine 04/06/2024 2:00 PM CO FOUNDER AND PRESIDENT SOB (shortness of breath) Chronic cough TRIAL JUDGE THIN PREP PAP AND HPV DNA - AGE 25 AND OVER ([facility]) Routine 02/14/2024 11:56 AM CO FOUNDER AND PRESIDENT Screening for cervical cancer BASIC METABOLIC PANEL Routine 02/10/2024 9:02 AM CO FOUNDER AND PRESIDENT Hypertension, unspecified type LIPID PANEL W REFLEX MEASURED LDL Routine 02/10/2024 9:02 AM CO FOUNDER AND PRESIDENT Screening cholesterol level VITAMIN D 25 (DEFICIENCY) Routine 02/10/2024 9:02 AM CO FOUNDER AND PRESIDENT Fatigue, unspecified type HEMOGLOBIN A1C MONITORING (POCT) Routine 02/10/2024 9:01 AM CO FOUNDER AND PRESIDENT Controlled type 2 diabetes mellitus without complication, without long-term current use of insulin (HC) XR MAMMO BILAT SCREENING Routine 11/22/2023 3:25 PM CDT Visit for screening mammogram from Last 3 Months or Most Recently Relevant to Health Maintenance Results * COMPLETE PULMONARY FUNCTION TEST WITH BRONCHODILATOR (04/06/2024 2:00 PM CO FOUNDER AND PRESIDENT) Narrative [facility] - 04/06/2024 2:00 PM CO FOUNDER AND PRESIDENT Antonio Mccain MD 04/07/2024 10:17 AM Complete Pulmonary Function Tests. Ordering Provider: Antonina Gaston,* Reason for Study: (R06.02) SOB (shortness of breath) (R05.3) Chronic cough Date of study: 04/06/2024 Study adequacy: The study is technically adequate. DESCRIPTION: There is a mild reduction in the FVC. There is a mild reduction in the FEV1. The FEV1/FVC ratio is normal. There is no bronchodilator responsiveness. The flow volume loop is normal There is a moderate increase in the RV/TLC ratio which is seen in hyperinflation. Diffusing capacity assessment was not technically adequate IMPRESSION: There is a nonspecific ventilatory abnormality present. In the context of current or former smoking, this may represent PRISM (Preserved Ratio-Impaired Spirometry pattern), which can predict future obstruction. It may also reflect poor effort, obesity or restriction. Clinical correlation is recommended. Lung volumes suggest hyperinflation which suggests obstructive lung disease. If there is concern for asthma, consider a methacholine challenge test. Pulmonary Function Tests describe physiology and are not independently diagnostic. Clinical correlation is recommended. Objective Severity Z-Score Normal > -1.645 Mild - 1.645 to -2.5 Moderate -2.5 to -4 Severe < -4 Interpretative Algorithm: Spirometry Interpretation Algorithm Lung Volume Interpretation Algorithm Diffusion Interpretation Algorithm Antonio Mccain MD Pulmonary and Sleep Medicine [facility] [phone] 04/07/2024 10:16 AM us Antonina POOLE PFT ORD Final R esult [facility] [place], [place] * TRIAL JUDGE THIN PREP PAP AND HPV DNA - AGE 25 AND OVER ([facility]) (02/14/2024 11:56 AM CO FOUNDER AND PRESIDENT) CLINICAL INFORMATION [facility] Comment:None given LMP [facility] Comment:8 YEARS PREV. PAP [facility] Comment:12/12/2018 PREV. BX [facility] Comment:NONE SOURCE TRIAL JUDGE [facility] Comment:Cervix STATEMENT OF ADEQUACY [facility] Comment: Satisfactory for evaluation. Endocervical/transformation zone component present. INTERPRETATION/RESU LT [facility] Comment: Cytology Results: Negative for intraepithelial lesion or malignancy. COMMENT [facility] Comment: This Pap test has been evaluated with computer assisted technology. ELECTRIC METER SETTER [facility] Comment: MEN, CT(ASCP) CT Screening location: [address] [address] THINPREP TIS PAP ALWAYS MESSAGE [facility] Comment: EXPLANATORY NOTE: The Pap is a screening test for cervical cancer. It is not a diagnostic test and is subject to false negative and false positive results. It is most reliable when a satisfactory sample, regularly obtained, is submitted with relevant clinical findings and history, and when the Pap result is evaluated along with historic and current clinical information. HPV HIGH RISK Not Detected NOT DETECTED [facility] Comment: Not Detected High Risk HPV types (16,18,31,33,35,39,45,51,52, 56,58,59,66,68) were not detected. Other HPV types which cause anogenital lesions may be present. The significance of the other types of HPV in malignant processes has not been established. Methodology: Real Time PCR Other (Other) 02/14/2024 11: 56 AM CO FOUNDER AND PRESIDENT 02/15/2024 7:36 AM CO FOUNDER AND PRESIDENT Antonina POOLE PATHOLOGY/CYTOLOGY Ananya l Result [facility] [address] [place] [address], [facility] [address] [place] [address] * (ABNORMAL) LIPID PANEL W REFLEX MEASURED LDL (02/10/2024 9:02 AM CO FOUNDER AND PRESIDENT) CHOLESTEROL, TOTAL 192 <200 mg/dL [facility] HDL CHOLESTEROL 42(L) > OR = 50 mg/dL [facility] TRIGLYCERIDES 298(H) <150 mg/dL [facility] Comment: If a non-fasting specimen was collected, consider repeat triglyceride testing on a fasting specimen if clinically indicated. Linda et al. J. of Clin. Lipidol. 2015;9:129-169. LDL-CHOLESTEROL 110(H) mg/dL (calc) [facility] Comment: Reference range: <100 Desirable range <100 mg/dL for primary prevention; <70 mg/dL for patients with CHD or diabetic patients with > or = 2 CHD risk factors. LDL-C is now calculated using the Jose A-Jaimes calculation, which is a validated novel method providing better accuracy than the Friedewald equation in the estimation of LDL-C. Jose A SS et al. MAGY. 2013;310(19): 8612-2960 (http://education.Waggl/faq/BST132) CHOL/HDLC RATIO 4.6 <5.0 (calc) [facility] NON HDL CHOLESTEROL 150(H) <130 mg/dL (calc) [facility] Comment: For patients with diabetes plus 1 major ASCVD risk factor, treating to a non-HDL-C goal of <100 mg/dL (LDL-C of <70 mg/dL) is considered a therapeutic option. Blood BLOOD SPECIMEN / Unknown 02/10/2024 9:02 AM CO FOUNDER AND PRESIDENT 02/10/2024 9:04 AM CO FOUNDER AND PRESIDENT Narrative [facility] - 02/11/2024 9:24 AM CO FOUNDER AND PRESIDENT FASTING:YES FASTING: YES us Antonina POOLE CHEMISTRY Final R esult [facility] [address] [place] [address], [facility] [address] [place] [address] * VITAMIN D 25 (DEFICIENCY) (02/10/2024 9:02 AM CO FOUNDER AND PRESIDENT) VITAMIN D,25-OH,TOTAL,IA 43 30 - 100 ng/mL [facility] Comment: Vitamin D Status 25-OH Vitamin D: Deficiency: <20 ng/mL Insufficiency: 20 - 29 ng/mL Optimal: > or = 30 ng/mL For 25-OH Vitamin D testing on patients on D2-supplementation and patients for whom quantitation of D2 and D3 fractions is required, the QuestAssureD(TM) 25-OH VIT D, (D2,D3), LC/MS/MS is recommended: order code 40938 (patients >2yrs). See Note 1 Note 1 For additional information, please refer to http://education.Waggl/faq/WGB649 (This link is being provided for informational/ educational purposes only.) Blood BLOOD SPECIMEN / Unknown 02/10/2024 9:02 AM CO FOUNDER AND PRESIDENT 02/10/2024 9:04 AM CO FOUNDER AND PRESIDENT Narrative [facility] - 02/11/2024 4:56 AM CO FOUNDER AND PRESIDENT FASTING:YES FASTING: YES Antonina POOLE SEND OUTS Final R esult [facility] [address] [place] [address], [facility] [address] [place] [address] * (ABNORMAL) BASIC METABOLIC PANEL (02/10/2024 9:02 AM CO FOUNDER AND PRESIDENT) GLUCOSE 165(H) 65 - 99 mg/dL [facility] Comment: Fasting reference interval For someone without known diabetes, a glucose value >125 mg/dL indicates that they may have diabetes and this should be confirmed with a follow-up test. UREA NITROGEN (BUN) 30(H) 7 - 25 mg/dL [facility] CREATININE 0.93 0.50 - 1.03 mg/dL [facility] EGFR 71 > OR = 60 mL/min/1.7 3m2 [facility] BUN/CREATININE RATIO 32(H) 6 - 22 (calc) [facility] SODIUM 140 135 - 146 mmol/L [facility] POTASSIUM 4.6 3.5 - 5.3 mmol/L [facility] CHLORIDE 105 98 - 110 mmol/L [facility] CARBON DIOXIDE 23 20 - 32 mmol/L [facility] ELECTROLYTE BALANCE 12 7 - 17 mmol/L (calc) [facility] CALCIUM 10.1 8.6 - 10.4 mg/dL [facility] Blood BLOOD SPECIMEN / Unknown 02/10/2024 9:02 AM CO FOUNDER AND PRESIDENT 02/10/2024 9:04 AM CO FOUNDER AND PRESIDENT Narrative [facility] - 02/11/2024 9:24 AM CO FOUNDER AND PRESIDENT FASTING:YES FASTING: YES us Antonina POOLE CHEMISTRY Final R esult [facility] [address] [place] [address], [facility] [address] * (ABNORMAL) HEMOGLOBIN A1C MONITORING POCT (02/10/2024 9:01 AM CO FOUNDER AND PRESIDENT) POC HEMOGLOBIN A1C 7.0(H) <6.0 % OF TOTAL HGB [facility] Comment: Any point of care results exhibiting inconsistency with the patient's clinical status should be repeated using a different testing method. Blood BLOOD SPECIMEN / Unknown 02/10/2024 9:01 AM CO FOUNDER AND PRESIDENT 02/10/2024 9:02 AM CO FOUNDER AND PRESIDENT us Antonina POOLE CHEMISTRY Final R esult [facility] [address] [place] [address], [facility] [address] [place] [address] * XR MAMMO BILAT SCREENING (11/22/2023 3:25 PM CDT) Anatomical Region Laterality Modality BREASTS, Breast Left, Breast Right Bilateral Mammography Impressions 11/25/2023 1:50 PM CDT There is no radiographic evidence for malignancy. Recommend annual mammograms. MAMMOGRAM ASSESSMENT: ACR 1 Negative PATIENTS: You will also receive a letter with your examination results in an easy to read format. If you have questions about your results, please contact your referring provider. Narrative 11/25/2023 1:50 PM CDT For Patients: As a result of the Cures Act, medical imaging exams and procedure reports are released immediately into your electronic medical record. You may view this report before your referring provider. If you have questions, please contact your health care provider. XR MAMMO BILAT SCREENING [[id number]] CLINICAL HISTORY: This is an asymptomatic 57 y.o. patient. INDICATION FOR EXAM: Mammogram Screening. TECHNIQUE: CC & MLO views were obtained. This study was evaluated with the assistance of Computer-Aided Detection. COMPARISON FILM: Yes 02/28/22 [facility] 01/20/21 [facility] FINDINGS: There are scattered areas of fibroglandular density. There are no dominant masses, suspicious micro calcifications or areas of architectural distortion. Antonina POOLE MAMMO Final R esult from Last 3 Months or Most Recently Relevant to Health Maintenance Insurance [facility] Advance Directives * Full Code (Latest Code Status on File) Date Activated Date Inactivated Comments 05/04/2022 12:36 AM 05/05/2022 4:55 PM Question Answer Comments Code Status Discussion: Reviewed Preferences Care Teams Transportation Supervisor Relationship Specialty Start Date End Date Antonina Gaston PA [address] [address] PCP - General Family Practice 05/30/15 Terri Dubose MD [address] [address] Rheumatology Rheumatology 11/12/17
[2024-04-15 21:07] VITALS: BP 137/83; PULSE 95; RESP 16; TEMP 37; O2SAT 98; BMI 43.9
--- NOTE | 2024-04-15 21:21 | ED_ITS ---
HPI - General Adult General Time Seen by Provider: 21:21 <Yessy Brewer MD - Last Filed: 04/16/24 00:46> Date Seen: 04/15/24 <Yessy Brewer MD - Last Filed: 04/16/24 00:46> Chief complaint: Neck Injury/Pain <Yessy Brewer MD - Last Filed: 04/16/24 00:46> Stated complaint: swelling in neck/jaw, started Thurs. <Yessy Brewer MD - Last Filed: 04/16/24 00:46> Time Seen by Provider: 04/15/24 21:20 <Yessy Brewer MD - Last Filed: 04/16/24 00:46> Source: patient and RN notes reviewed <Yessy Brewer MD - Last Filed: 04/16/24 00:46> Mode of arrival: ambulatory <Yessy Brewer MD - Last Filed: 04/16/24 00:46> Limitations: no limitations <Yessy Brewer MD - Last Filed: 04/16/24 00:46> History of Present Illness HPI narrative: This 58-year-old female is coming into the ER ambulatory of her own accord with complaint of right facial and jaw swelling. She states she has had problems with her right ear for years. It was popping prior to this, did have some wax cleaned out. Shortly after that, her right jaw swelled up, she does note increased pain with chewing. She has had no fevers or chills. She did read online about parotid glands but also about infections after having ear cleaning done. She has seen an ENT about this here before, they could not find anything wrong. She is not have any difficulty swallowing or breathing. She took Tylenol around 3:00 p.m.. She does have an appointment this coming Saturday with her primary care provider. <Yessy Brewer MD - Last Filed: 04/16/24 00:46> Related Data Home medications: Home Medications ?Medication ?Instructions ?Recorded ?Confirmed atenolol 50 mg tablet 50 mg PO DAILY 11/01/23 04/15/24 hydrochlorothiazide 25 mg tablet 25 mg PO DAILY 11/01/23 04/15/24 lisinopril 40 mg tablet 40 mg PO DAILY 11/01/23 04/15/24 metformin 750 mg tablet,extended 1,500 mg PO QPM 11/01/23 04/15/24 release 24 hr Previous Rx's ?Medication ?Instructions ?Recorded apixaban 5 mg tablet (Eliquis) 10 mg (2 x 5 mg) PO BID #60 tabs 11/03/23 loratadine 10 mg tablet 10 mg PO DAILY 30 days #30 tabs 11/03/23 clindamycin HCl 300 mg capsule 300 mg PO TID #15 caps 04/16/24 oxycodone 5 mg tablet 5 mg PO TID PRN pain #15 tabs 04/16/24 <Yessy Brewer MD - Last Filed: 04/16/24 00:46> Allergies/adverse reactions: Allergies Allergy/AdvReac Type Severity Reaction Status Date / Time Penicillins AdvReac Verified 11/01/23 03:06 Sulfa (Sulfonamide AdvReac Verified 11/01/23 03:06 Antibiotics) <Yessy Brewer MD - Last Filed: 04/16/24 00:46> Review of Systems Status of ROS: Reports: 6 or more systems reviewed and unremarkable except as noted in History and below <Yessy Brewer MD - Last Filed: 04/16/24 00:46> [facility] Medical History: Medical History Primary hypertension ?I10 - Essential (primary) hypertension (ICD-10) Type 2 diabetes mellitus, without long-term current use of insulin ?E11.9 - Type 2 diabetes mellitus without complications (ICD-10) Fibromyalgia ?M79.7 - Fibromyalgia (ICD-10) DVT (deep vein thrombosis) in ?O22.30 - Deep phlebothrombosis in , unspecified trimester (ICD-10) Pulmonary embolism ?I26.99 - Other pulmonary embolism without acute cor pulmonale (ICD-10) <Yessy Brewer MD - Last Filed: 04/16/24 00:46> Surgical History: Surgical History [place] teeth extracted ?K08.409 - Partial loss of teeth, unspecified cause, unspecified class (ICD- 10) Hx laparoscopic cholecystectomy ?Z90.49 - Acquired absence of other specified parts of digestive tract (ICD- 10) <Yessy Brewer MD - Last Filed: 04/16/24 00:46> Family History: Family History Father Lupus anticoagulant positive <Yessy Brewer MD - Last Filed: 04/16/24 00:46> Social History: Social History Narrative: , 1 son, Sr. [employer]ing [employer], non-smoker, PCP Fe What is your current living situation?: I presently have a place to live Problems where you live: no known problems Problems where you live details: N/A In the past 12 months, utilities in danger of being shut off: no In past 12 months, lack of transportation kept you from medical appts, meetings, work, or getting things needed for daily living: no In the past 12 mos, have been you worried that your food would run out before you had money to buy more?: never true In the past 12 mos, the food you bought just didn't last and you didn't have money to buy more?: never true Highest level of school completed/degree received: some college, no degree Smoking Status: Never smoker Do you use any of these nicotine containing products: None How often do you have a drink containing alcohol: never AUDIT-C Alcohol total score: 0 Non-prescribed substance use: denies use Caffeine: No How often does anyone, including family, friends and others, physically hurt you : never How often does anyone, including family, friends and others, insult or talk down to you: never How often does anyone, including family, friends and others, threaten you with harm: never How often does anyone, including family, friends and others, scream or curse at you: never service: No <Yessy Brewer MD - Last Filed: 04/16/24 00:46> Exam Const: Vital Signs, click to edit/add: Vital Signs - 24 hr 04/15/24 21:07 04/16/24 00:00 04/16/24 02:02 Temperature 98.6 F Pulse Rate 99 Pulse Rate [Pulse Oximeter] 95 Respiratory Rate 16 20 Blood Pressure 121/63 Blood Pressure [Ri ght Upper Arm] 137/83 Pulse Oximetry 98 96 96 Oxygen Delivery Me thod Room Air This patient is alert, interactive, no apparent distress. She has visible swelling of right angle of her jaw on her face, does extend a little bit behind the angle of the jaw. Her ear is normal, canal is normal. TM has milky opaque fluid, loss of light reflex and translucent see but no erythema or evidence of infection. Left TM and canal are normal. Oropharynx with normal mucosa, no exudates erythema is able to open her jaw wide, see no abnormality underneath the tongue. Neck is supple, no adenopathy in the anterior cervical or posterior chains. Lungs are clear, good air entry, no wheezing or crackles. CV regular rate and rhythm no murmur. Patient is able to talk without any difficulty, voice is normal. <Yessy Brewer MD - Last Filed: 04/16/24 00:46> Vital Signs, click to edit/add: Vital Signs - 24 hr 04/15/24 21:07 04/16/24 00:00 04/16/24 02:02 Temperature 98.6 F Pulse Rate 99 Pulse Rate [Pulse Oximeter] 95 Respiratory Rate 16 20 Blood Pressure 121/63 Blood Pressure [Ri ght Upper Arm] 137/83 Pulse Oximetry 98 96 96 Oxygen Delivery Me thod Room Air <Gomez Montesinos MD - Last Filed: 04/16/24 04:41> Documenting provider has reviewed patient's vital signs: yes <Yessy Brewer MD - Last Filed: 04/16/24 00:46> Course Course ED Course: I suspect parotid gland issue here but will get soft tissue neck CT with IV contrast. Will get baseline labs to further identify this. She is aware that this requires the IV contrast and is agreeable. Nursing staff is having to try to use ultrasound to find an IV. <Yessy Brewer MD - Last Filed: 04/16/24 00:46> Reevaluation(s) Time of Reevaluation #1: 11:36 <Yessy Brewer MD - Last Filed: 04/16/24 00:46> Reevaluation #1: Have reviewed with patient that her CT showing prostatitis in there is a p arotid gland abscess. 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 She has had recurrent PEs. She is not a candidate for ENT surgery here, he is not doing parotid procedures. We will look for outside hospital with ENT capacity. This may prove to be extremely difficult. I do know that all facilities are full. May was on system why divert but we will check with everybody. She is seen at [facility], will check with [facility] system again but do know because of other phone calls and patient encounters that there is no capacity. Nursing staff is going to check however with all systems that have ENT capacity. In the meantime, will initiate vancomycin and clindamycin per literature search given her penicillin allergy. Per nursing staff, there are no facilities for capacity for this patient with ENT services. Patient will initiate antibiotics and we will continue to search for a bed to transfer her to where she can have ENT services. <Yessy Brewer MD - Last Filed: 04/16/24 00:46> Reevaluation #2: I assumed care of this patient from Dr. Momin. She is afebrile. Her white blood count is normal. She is able to breathe without any difficulty. She is able to drink without any difficulty. She has received clindamycin and vancomycin and is feeling a bit better. She saw ENT a week ago for right ear pain and was told that it was related to earwax. I suspect that her abscess has been brewing for well over a week. She does need ENT follow-up but I think she is stable for discharge home and arrangement for outpatient ENT. I will make a phone call to her PCP Dr. Gaston in morning so she can help facilitate close ENT follow-up. The patient is discharged with oral clindamycin and oral oxycodone for pain. I think she can be safely discharged and she would certainly prefer that as well. All [facility] are full and I believe that she would end up boarding in the ER for days before we could find placement. She is comfortable with this plan. <Gomez Montesinos MD - Last Filed: 04/16/24 04:41> Vital Signs Vital signs: Initial Vital Signs Temperature 98.6 F 04/15/24 21:07 Temperature Source Temporal Artery Scan 04/15/24 21:07 Pulse Rate 95 04/15/24 21:07 Pulse Rhythm Regular 04/15/24 21:07 Respiratory Rate 16 04/15/24 21:07 Blood Pressure 137/83 04/15/24 21:07 Blood Pressure Mean 101 04/15/24 21:07 Blood Pressure Position Sitting 04/15/24 21:07 Pulse Oximetry 98 04/15/24 21:07 Oxygen Delivery Method Room Air 04/15/24 21:07 Vital Signs Temperature 98.6 F 04/15/24 21:07 Pulse Rate 95 04/15/24 21:07 Respiratory Rate 16 04/15/24 21:07 Blood Pressure 137/83 04/15/24 21:07 Pulse Oximetry 98 04/15/24 21:07 Oxygen Delivery Method Room Air 04/15/24 21:07 Temperature 98.6 F 04/15/24 21:07 Pulse Rate 99 04/16/24 02:02 Respiratory Rate 20 04/16/24 02:02 Blood Pressure 121/63 04/16/24 02:02 Pulse Oximetry 96 04/16/24 02:02 Oxygen Delivery Method Room Air 04/15/24 21:07 <Yessy Brewer MD - Last Filed: 04/16/24 00:46> Initial Vital Signs Temperature 98.6 F 04/15/24 21:07 Temperature Source Temporal Artery Scan 04/15/24 21:07 Pulse Rate 95 04/15/24 21:07 Pulse Rhythm Regular 04/15/24 21:07 Respiratory Rate 16 04/15/24 21:07 Blood Pressure 137/83 04/15/24 21:07 Blood Pressure Mean 101 04/15/24 21:07 Blood Pressure Position Sitting 04/15/24 21:07 Pulse Oximetry 98 04/15/24 21:07 Oxygen Delivery Method Room Air 04/15/24 21:07 Vital Signs Temperature 98.6 F 04/15/24 21:07 Pulse Rate 95 04/15/24 21:07 Respiratory Rate 16 04/15/24 21:07 Blood Pressure 137/83 04/15/24 21:07 Pulse Oximetry 98 04/15/24 21:07 Oxygen Delivery Method Room Air 04/15/24 21:07 Temperature 98.6 F 04/15/24 21:07 Pulse Rate 99 04/16/24 02:02 Respiratory Rate 20 04/16/24 02:02 Blood Pressure 121/63 04/16/24 02:02 Pulse Oximetry 96 04/16/24 02:02 Oxygen Delivery Method Room Air 04/15/24 21:07 <Gomez Montesinos MD - Last Filed: 04/16/24 04:41> Medications Administered Medications: Generic Name Dose Route Start Last Admin Trade Name Freq PRN Reason Stop Dose Admin Clindamycin Phosphate 600 mg in 50 mls @ 100 mls/hr 04/15/24 23:54 04/16/24 01:10 Clindamycin 600 Mg/50 Ml-D5w IVPB Infused Q8H AILEEN Infusion Discontinued Medications Generic Name Dose Route Start Last Admin Trade Name Freq PRN Reason Stop Dose Admin Vancomycin/PEG/NADA/Lysine/Water 2 gm in 400 mls @ 200 mls/hr 04/15/24 23:53 04/16/24 03:06 Vancomycin 2 Gm/400 Ml IVPB 04/16/24 01:52 Infused ONCE ONE Infusion Protocol <Yessy Brewer MD - Last Filed: 04/16/24 00:46> Generic Name Dose Route Start Last Admin Trade Name Freq PRN Reason Stop Dose Admin Clindamycin Phosphate 600 mg in 50 mls @ 100 mls/hr 04/15/24 23:54 04/16/24 01:10 Clindamycin 600 Mg/50 Ml-D5w IVPB Infused Q8H AILEEN Infusion Discontinued Medications Generic Name Dose Route Start Last Admin Trade Name Freq PRN Reason Stop Dose Admin Vancomycin/PEG/NADA/Lysine/Water 2 gm in 400 mls @ 200 mls/hr 04/15/24 23:53 04/16/24 03:06 Vancomycin 2 Gm/400 Ml IVPB 04/16/24 01:52 Infused ONCE ONE Infusion Protocol <Gomez Montesinos MD - Last Filed: 04/16/24 04:41> Medical Decision Making Lab Data Lab results reviewed: Yes I reviewed the patient's lab results <Yessy Brewer MD - Last Filed: 04/16/24 00:46> Labs: Lab Results 04/15/24 Range/Units 21:28 WBC 8.92 (4.50-11.00) K/uL RBC 4.48 (4.00-5.20) m/uL Hgb 12.1 (12.0-16.0) gm/dL Hct 38.0 (33.0-51.0) % MCV 85 (80-100) fL MCH 27 (26-34) pg MCHC 32 (32-36) gm/dL RDW Coeff of Alan 14.1 (11.5-15.5) % Plt Count 257 (140-440) K/uL Neut % (Auto) 75.1 H (42.0-72.0) % Lymph % (Auto) 18.0 L (20-44) % [place] % (Auto) 5.7 (0.0-11.0) % Eos % (Auto) 0.6 (0.0-7.0) % Baso % (Auto) 0.4 (0.0-3.0) % Neut # (Auto) 6.70 (1.7-7.0) K/uL Lymph # (Auto) 1.60 (0.90-2.90) K/uL [place] # (Auto) 0.50 (0.00-0.90) K/UL Eos # (Auto) 0.05 (0.00-0.50) K/uL Baso # (Auto) 0.04 (0.00-0.30) K/uL Abs Immat Gran (auto) 0.02 (0.00-0.30) K/uL Imm/Tot Granulo (auto) 0.2 % Sodium 140 (135-149) mmol/L Potassium 3.9 (3.6-5.1) mmol/L Chloride 102 (96-114) mmol/L Carbon Dioxide 27 (20-32) mmol/L Anion Gap 11 (7-15) mEq/L BUN 29 (7-30) mg/dL Creatinine 0.9 (0.5-1.5) mg/dL Estimated Creat Clear 63.78 Estimated GFR 74 ml/min Glucose 178 H (60-115) mg/dL Calcium 9.9 (8.4-10.6) mg/dL C-Reactive Protein 3.3 H (0.5-1.0) mg/dL <Yessy Brewer MD - Last Filed: 04/16/24 00:46> Lab Results 04/15/24 Range/Units 21:28 WBC 8.92 (4.50-11.00) K/uL RBC 4.48 (4.00-5.20) m/uL Hgb 12.1 (12.0-16.0) gm/dL Hct 38.0 (33.0-51.0) % MCV 85 (80-100) fL MCH 27 (26-34) pg MCHC 32 (32-36) gm/dL RDW Coeff of Alan 14.1 (11.5-15.5) % Plt Count 257 (140-440) K/uL Neut % (Auto) 75.1 H (42.0-72.0) % Lymph % (Auto) 18.0 L (20-44) % [place] % (Auto) 5.7 (0.0-11.0) % Eos % (Auto) 0.6 (0.0-7.0) % Baso % (Auto) 0.4 (0.0-3.0) % Neut # (Auto) 6.70 (1.7-7.0) K/uL Lymph # (Auto) 1.60 (0.90-2.90) K/uL [place] # (Auto) 0.50 (0.00-0.90) K/UL Eos # (Auto) 0.05 (0.00-0.50) K/uL Baso # (Auto) 0.04 (0.00-0.30) K/uL Abs Immat Gran (auto) 0.02 (0.00-0.30) K/uL Imm/Tot Granulo (auto) 0.2 % Sodium 140 (135-149) mmol/L Potassium 3.9 (3.6-5.1) mmol/L Chloride 102 (96-114) mmol/L Carbon Dioxide 27 (20-32) mmol/L Anion Gap 11 (7-15) mEq/L BUN 29 (7-30) mg/dL Creatinine 0.9 (0.5-1.5) mg/dL Estimated Creat Clear 63.78 Estimated GFR 74 ml/min Glucose 178 H (60-115) mg/dL Calcium 9.9 (8.4-10.6) mg/dL C-Reactive Protein 3.3 H (0.5-1.0) mg/dL <Gomez Montesinos MD - Last Filed: 04/16/24 04:41> Imaging Data CT- Other: Attestation: I have reviewed the pertinent imaging results. <Yessy Ching MD - Last Filed: 04/16/24 00:46> Radiologist's impression: Patient: SATURNINO BUCKNER Facility:?[facility] Patient ID:?[id number] Site Patient ID:?[id number]. Site :?[id number] Study:?CT-ST Neck W/ ISOVUE 370-04/15/2024 11:08:54 PM Ordering Physician:?Daniella Krishnamurthy Final Report: INDICATION: Right lower facial/angle of jaw swelling. TECHNIQUE: CT soft tissue of the neck was acquired with 133 cc Isovue 370 IV contrast. COMPARISON: None. FINDINGS: Skull base: Unremarkable. Pharynx/Larynx/Trachea: Epiglottis is normal. Airway is patent. Adjacent soft tissues are normal. Salivary glands: Asymmetric enlargement of the right parotid gland. Intraparotid low-density collection with peripheral enhancement measuring approximately 1.3 x 1.8 x 1.9 cm. Overlying subcutaneous stranding and edema. Thyroid gland: Unremarkable. No significant nodules. Lymph nodes: Mildly enlarged right parotid and level IIa lymph nodes. Vessels: Unremarkable for age. Bones: Unremarkable for age. Lung apices: Unremarkable. IMPRESSION: 1. Acute right parotiditis complicated by intraparotid abscess formation measuring approximately 1.3 x 1.8 x 1.9 cm. 2. Mildly enlarged right parotid and level IIa lymph nodes, favored reactive. Please note that all CT scans at this facility use dose modulation, iterative reconstruction, and/or weight-based dosing when appropriate to reduce radiation dose to as low as reasonably achievable. Dictated by Juanito Ji MD @ 04/15/2024 11:18:04 PM (Electronic Signature) <Yessy Brewer MD - Last Filed: 04/16/24 00:46> Discharge Plan Discharge Clinical Impression: Abscess of parotid gland <Yessy Brewer MD - Last Filed: 04/16/24 00:46> Patient Disposition: Home, Self-Care <Yessy Brewer MD - Last Filed: 04/16/24 00:46> Condition: Guarded <Yessy Brewer MD - Last Filed: 04/16/24 00:46> Additional Instructions: Push fluids. See [facility]NT [facility]. I will contact Dr Gaston to help facilitate this. Clindamycin 300 mg three times daily. Tylenol 1000 mg three times daily. Oxycodone 5 mg every 8 hours as needed. Return to ER for difficulty breathing or swallowing. <Yessy Brewer MD - Last Filed: 04/16/24 00:46> Prescriptions: New clindamycin HCl 300 mg capsule 300 mg PO TID Qty: 15 0RF oxycodone 5 mg tablet 5 mg PO TID PRN (Reason: pain) Qty: 15 0RF No Action metformin 750 mg tablet extended release 24 hr 1,500 mg PO QPM hydrochlorothiazide 25 mg tablet 25 mg PO DAILY lisinopril 40 mg tablet 40 mg PO DAILY atenolol 50 mg tablet 50 mg PO DAILY loratadine 10 mg Tablet 10 mg PO DAILY 30 Days Qty: 30 1RF Eliquis 5 mg Tablet 10 mg PO BID Qty: 60 1RF <Yessy Brewer MD - Last Filed: 04/16/24 00:46> Follow Up/Referrals: Antonina Gaston PAYadiraC [Primary Care Provider] - <Yessy Brewer MD - Last Filed: 04/16/24 00:46> Stand Alone Forms: [employer] Info Instructions <Yessy Brewer MD - Last Filed: 04/16/24 00:46>
--- NOTE | 2024-04-15 21:27 | CRLHL7_ITS ---
For Patients: As a result of the Century Cures Act, medical imaging exams and procedure reports are released immediately into your electronic medical record. You may view this report before your referring provider. If you have questions, please contact your health care provider. INDICATION: Right lower facial/angle of jaw swelling. TECHNIQUE: CT soft tissue of the neck was acquired with 133 cc Isovue 370 IV contrast. COMPARISON: None. FINDINGS: Skull base: Unremarkable. Pharynx/Larynx/Trachea: Epiglottis is normal. Airway is patent. Adjacent soft tissues are normal. Salivary glands: Asymmetric enlargement of the right parotid gland. Intraparotid low-density collection with peripheral enhancement measuring approximately 1.3 x 1.8 x 1.9 cm. Overlying subcutaneous stranding and edema. Thyroid gland: Unremarkable. No significant nodules. Lymph nodes: Mildly enlarged right parotid and level IIa lymph nodes. Vessels: Unremarkable for age. Bones: Unremarkable for age. Lung apices: Unremarkable. IMPRESSION: 1. Acute right parotiditis complicated by intraparotid abscess formation measuring approximately 1.3 x 1.8 x 1.9 cm. 2. Mildly enlarged right parotid and level IIa lymph nodes, favored reactive. Please note that all CT scans at this facility use dose modulation, iterative reconstruction, and/or weight-based dosing when appropriate to reduce radiation dose to as low as reasonably achievable. Dictated by Juanito Ji MD @ 04/15/2024 11:18:04 PM (Electronically Signed)
--- OUTSIDE RECORDS SUMMARY | 2024-04-15 21:41 | XMS_ITS | Clinical Summary ---
Author Organization [facility] Address [place], [place] [address] Care Team Providers Care Top Lift Trimmer Name Role Phone Antonina Gaston Primary Care Provider Terri Dubose MD Unavailable [phone] Allergies Active Allergy Reactions Criticality Noted [...] times a day 0 5 Active potassium-calci qp-bffnyl-cmqqw [phone] mg pwpk Mix in liquid then take by mouth two times daily. 0 6 Active cholecalciferol , Vitamin D3, 5,000 unit tab tablet Take 1 tablet by mouth once daily. 0 8 Active turmeric root extract 500 mg cap Take 500 mg by mouth once daily. 0 9 Active qzkab-ac-5-dha- cln-orgjwvm-kgk 330-34-25-45 mg cap Take 1 Capsule by mouth [...] 14 days. 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 1 Each 4 Active sodium chloride ([place] Nasal Earling) 0.65 % nasal solutionIndicat ions:Nasal dryness Inhale 1 Earling into affected nostril(s) every hour if needed for Nasal Dryness. 45 mL 11 4 Active fluticasone furoate (Flonase Sensimist) 27.5 mcg/actuation nasal sprayIndication s:Nasal congestion Inhale 1 Earling in both nostrils once daily. 9.1 mL [...] Department Care Team Description 04/06/2024 2:00 PM STAVE BLOCK SPLITTER - 04/06/2024 11:59 PM STAVE BLOCK SPLITTER Hospital Encounter [facility] [address] [place] [place] [address] Antonina Gaston PA SOB (shortness of breath); Chronic cough 04/06/2024 Travel 03/02/2024 Telephone [facility] [address] [place] [address] Antonina Gaston PA 02/28/2024 Telephone [facility] [address] [place] [address] Antonina Gaston PA Form 02/19/2024 3:30 PM STAVE BLOCK SPLITTER Office Visit [facility] [address] [place] [address] Antoinette Esparza PA Consult (Plugged ears/Seasonal allergies/Allergic rhinitis, unspecified seasonality, unspecified trigger/Nasal congestion ) 02/19/2024 3:00 PM STAVE BLOCK SPLITTER Office Visit [facility] [address] [place] [address] Shilpa Yancey AuD Hearing Problem (Hearing test) 02/19/2024 Travel 02/14/2024 10:30 AM STAVE BLOCK SPLITTER Office Visit [facility] [address] [place] [address] Antonina Gaston PA Physical (58 years old); Follow Up (Follow up on blood work / return to work??) 02/14/2024 Travel 02/10/2024 8:45 AM STAVE BLOCK SPLITTER Orders Only [facility] [address] [place] [address] Lab, [facility] 02/10/2024 Travel 01/31/2024 Orders Only [address] [address] Antonina Gaston PA Lab (Orders entered) 01/22/2024 1:20 PM CDT Office Visit [facility] [address] [place] [address] Antonina Gaston PA Sinus Problem (Sinus infection. Feeling pressure under eyes and going to the ears. Started evening. ); Form (Forms for snf disability. 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[employer]) for continuous blood glucose monitor (CGM) (Approved Through 01/21/2025)) 01/15/2024 Telephone [facility] [address] [place] [address] Antonina Gaston PA Form from Last 3 Months Immunizations Name Administration Dates Next Due AMB Influenza, IIV3 (Age >=3 years)(Flu Clinic Only) 01/11/2009 AMB Influenza, IIV4 PF (=>6 mos Flulaval,Fluzone Fluarix)(Flu Clinic Only) 01/11/2014 COVID-19 VACCINE SPIKEVAX (M ODERNA 50MCG/0.5ML) 12YO+ PFS 12/25/2023,02/08/2023 COVID-19 vaccine (QR PharmaBio NTech 30mcg/0.3mL) 12YO+ BIVALENT PF, MDV 02/07/2022 [...] on file Legal Sex Female 7:09 AM STAVE BLOCK SPLITTER Gender Identity Not on file Sexual Orientation [...] Comments Blood Pressure 119/75 02/14/2024 10:26 AM STAVE BLOCK SPLITTER Pulse 73 02/14/2024 10:26 AM STAVE BLOCK SPLITTER Temperature 36.6 C (97.9 F) 06/04/2023 2:56 PM STAVE BLOCK SPLITTER Respiratory Rate 16 06/04/2023 2:56 PM STAVE BLOCK SPLITTER Oxygen Saturation 96% 02/14/2024 10:26 AM STAVE BLOCK SPLITTER Inhaled Oxygen Concentration - - Weight 126 kg (277 lb 12.8 oz) 02/14/2024 10:26 AM STAVE BLOCK SPLITTER Height 167.6 cm (5' 6) 02/14/2024 10:26 AM STAVE BLOCK SPLITTER Body Mass Index 44.84 02/14/2024 10:26 AM STAVE BLOCK SPLITTER Plan of Treatment Upcoming Encounters Date Type Department Care Team (Late st Contact Info) Description 04/17/2024 9:10 AM STAVE BLOCK SPLITTER Office Visit [facility] [address] [place] [address] Antonina Gaston PA [address] [place] [address] 05/18/2024 3:20 PM STAVE BLOCK SPLITTER Office Visit [facility] [address] [place] [address] Antonina Gaston PA [address] [place] [address] Health Maintenance Due Date Last Done Comments [...] TEST WITH BRONCHODILATOR Routine 04/06/2024 2:00 PM STAVE BLOCK SPLITTER SOB (shortness of breath) Chronic cough TRIAL EXAMINER THIN PREP PAP AND HPV DNA - AGE 25 AND OVER ([facility]) Routine 02/14/2024 11:56 AM STAVE BLOCK SPLITTER Screening for cervical cancer BASIC METABOLIC PANEL Routine 02/10/2024 9:02 AM STAVE BLOCK SPLITTER Hypertension, unspecified type LIPID PANEL W REFLEX MEASURED LDL Routine 02/10/2024 9:02 AM STAVE BLOCK SPLITTER Screening cholesterol level VITAMIN D 25 (DEFICIENCY) Routine 02/10/2024 9:02 AM STAVE BLOCK SPLITTER Fatigue, unspecified type HEMOGLOBIN A1C MONITORING (POCT) Routine 02/10/2024 9:01 AM STAVE BLOCK SPLITTER Controlled type 2 diabetes mellitus without complication, without long-term current use of insulin (HC) XR MAMMO BILAT SCREENING Routine 11/22/2023 3:25 PM CDT Visit for screening mammogram from Last 3 Months or Most Recently Relevant to Health Maintenance Results * COMPLETE PULMONARY FUNCTION TEST WITH BRONCHODILATOR (04/06/2024 2:00 PM STAVE BLOCK SPLITTER) Narrative [facility] - 04/06/2024 2:00 PM STAVE BLOCK SPLITTER Antonio Mccain MD 04/07/2024 10:17 AM Complete [...] Antonio Mccain MD Pulmonary and Sleep Medicine [facility] [phone] 04/07/2024 10:16 AM us Antonina POOLE PFT ORD Final R esult [facility] [place], [place] * TRIAL EXAMINER THIN PREP PAP AND HPV DNA - AGE 25 AND OVER ([facility]) (02/14/2024 11:56 AM STAVE BLOCK SPLITTER) CLINICAL INFORMATION [facility] Comment:None given LMP [facility] Comment:8 YEARS PREV. PAP [facility] Comment:12/12/2018 PREV. BX [facility] Comment:NONE SOURCE TRIAL EXAMINER [facility] Comment:Cervix STATEMENT OF ADEQUACY [facility] Comment: Satisfactory for evaluation. Endocervical/transformation zone component present. INTERPRETATION/RESU LT [facility] Comment: Cytology Results: Negative for intraepithelial lesion or malignancy. COMMENT [facility] Comment: This Pap test has been evaluated with computer assisted technology. HEAD OF ENGLISH [facility] Comment: MEN, CT(ASCP) CT Screening location: [address] [address] THINPREP TIS PAP ALWAYS MESSAGE [facility] Comment: EXPLANATORY NOTE: The Pap is a [...] HIGH RISK Not Detected NOT DETECTED [facility] Comment: Not Detected High Risk HPV types (16,18,31,33,35,39,45,51,52, 56,58,59,66,68) were not detected. Other HPV types which cause anogenital lesions may be present. The significance of the other types of HPV in malignant processes has not been established. Methodology: Real Time PCR Other (Other) 02/14/2024 11: 56 AM STAVE BLOCK SPLITTER 02/15/2024 7:36 AM STAVE BLOCK SPLITTER Antonina POOLE PATHOLOGY/CYTOLOGY Ananya l Result [facility] [address] [place] [address], [facility] [address] [place] [address] * (ABNORMAL) LIPID PANEL W REFLEX MEASURED LDL (02/10/2024 9:02 AM STAVE BLOCK SPLITTER) CHOLESTEROL, TOTAL 192 <200 mg/dL [facility] HDL CHOLESTEROL 42(L) > OR = 50 mg/dL [facility] TRIGLYCERIDES 298(H) <150 mg/dL [facility] Comment: If a non-fasting specimen was collected, consider repeat triglyceride testing on a fasting specimen if clinically indicated. Linda et al. J. of Clin. Lipidol. 2015;9:129-169. LDL-CHOLESTEROL 110(H) mg/dL (calc) [facility] Comment: Reference range: <100 Desirable [...] Jose A SS et al. MAGY. 2013;310(19): 1259-7050 (http://education.Atrica/faq/KFD490) CHOL/HDLC RATIO 4.6 <5.0 (calc) [facility] NON HDL CHOLESTEROL 150(H) <130 mg/dL (calc) [facility] Comment: For patients with diabetes plus 1 major ASCVD risk factor, treating to a non-HDL-C goal of <100 mg/dL (LDL-C of <70 mg/dL) is considered a therapeutic option. Blood BLOOD SPECIMEN / Unknown 02/10/2024 9:02 AM STAVE BLOCK SPLITTER 02/10/2024 9:04 AM STAVE BLOCK SPLITTER Narrative [facility] - 02/11/2024 9:24 AM STAVE BLOCK SPLITTER FASTING:YES FASTING: YES us Antonina POOLE CHEMISTRY Final R esult [facility] [address] [place] [address], [facility] [address] [place] [address] * VITAMIN D 25 (DEFICIENCY) (02/10/2024 9:02 AM STAVE BLOCK SPLITTER) VITAMIN D,25-OH,TOTAL,IA 43 30 - 100 ng/mL [facility] Comment: Vitamin D Status 25-OH Vitamin D: Deficiency: <20 ng/mL Insufficiency: 20 - 29 ng/mL Optimal: > or = 30 ng/mL For 25-OH Vitamin D testing on patients on D2-supplementation and patients for whom quantitation of D2 and D3 fractions is required, the QuestAssureD(TM) 25-OH VIT D, (D2,D3), LC/MS/MS is recommended: order code 19331 (patients >2yrs). See Note 1 Note 1 For additional information, please refer to http://education.Atrica/faq/IYA056 (This link is being provided for informational/ educational purposes only.) Blood BLOOD SPECIMEN / Unknown 02/10/2024 9:02 AM STAVE BLOCK SPLITTER 02/10/2024 9:04 AM STAVE BLOCK SPLITTER Narrative [facility] - 02/11/2024 4:56 AM STAVE BLOCK SPLITTER FASTING:YES FASTING: YES Antonina POOLE SEND OUTS Final R esult [facility] [address] [place] [address], [facility] [address] [place] [address] * (ABNORMAL) BASIC METABOLIC PANEL (02/10/2024 9:02 AM STAVE BLOCK SPLITTER) GLUCOSE 165(H) 65 - 99 mg/dL [facility] Comment: Fasting reference interval For [...] CALCIUM 10.1 8.6 - 10.4 mg/dL [facility] Blood BLOOD SPECIMEN / Unknown 02/10/2024 9:02 AM STAVE BLOCK SPLITTER 02/10/2024 9:04 AM STAVE BLOCK SPLITTER Narrative [facility] - 02/11/2024 9:24 AM STAVE BLOCK SPLITTER FASTING:YES FASTING: YES us Antonina POOLE CHEMISTRY Final R esult [facility] [address] [place] [address], [place] [address] * (ABNORMAL) HEMOGLOBIN A1C MONITORING POCT (02/10/2024 9:01 AM STAVE BLOCK SPLITTER) POC HEMOGLOBIN A1C 7.0(H) <6.0 % OF TOTAL HGB [facility] Comment: Any point of care results exhibiting inconsistency with the patient's clinical status should be repeated using a different testing method. Blood BLOOD SPECIMEN / Unknown 02/10/2024 9:01 AM STAVE BLOCK SPLITTER 02/10/2024 9:02 AM STAVE BLOCK SPLITTER us Antonina POOLE CHEMISTRY Final R esult [facility] [address] [place] [address], [facility] [address] [place] [address] * XR MAMMO BILAT SCREENING (11/22/2023 3:25 [...] health care provider. XR MAMMO BILAT SCREENING [[id number]] CLINICAL HISTORY: This is an asymptomatic 57 y.o. patient. INDICATION FOR EXAM: Mammogram Screening. TECHNIQUE: CC & MLO views were obtained. This study was evaluated with the assistance of Computer-Aided Detection. COMPARISON FILM: Yes 02/28/22 [facility] FINDINGS: There are scattered areas of fibroglandular density. There are no dominant masses, suspicious micro calcifications or areas of architectural distortion. Antonina POOLE MAMMO Final R esult from Last 3 Months or Most Recently Relevant to Health Maintenance Insurance [facility] Advance Directives * Full Code (Latest Code Status on File) Date Activated Date Inactivated Comments 05/04/2022 12:36 AM 05/05/2022 4:55 PM Question Answer Comments Code Status Discussion: Reviewed Preferences Care Teams Top Lift Trimmer Relationship Specialty Start Date End Date Antonina Gaston PA [address] [address] PCP - General Family Practice 05/30/15 Terri Dubose MD [address] [address] Rheumatology Rheumatology 11/12/17
[2024-04-15 22:02] LABS: Chloride* 102 mmol/L (96-114)
[2024-04-15 22:03] LABS: Potassium* 3.9 mmol/L (3.6-5.1); Sodium* 140 mmol/L (135-149)
[2024-04-15 22:05] LABS: Creatinine* 0.9 mg/dL (0.5-1.5); Est. Creatinine Clearance* 63.78; Estimated Glomerular Filt Rate 74 ml/min
[2024-04-15 22:06] LABS: Anion Gap 11 mEq/L (7-15); Blood Urea Nitrogen* 29 mg/dL (7-30); Calcium* 9.9 mg/dL (8.4-10.6); Carbon Dioxide* 27 mmol/L (20-32); Glucose* 178 mg/dL (60-115)
[2024-04-15 22:09] LABS: Basophils Absolute Auto 0.04 K/uL (0.00-0.30); Basophils Percent Auto 0.4 % (0.0-3.0); C Reactive Protein* 3.3 mg/dL (0.5-1.0); Eosinophils Absolute Auto 0.05 K/uL (0.00-0.50); Eosinophils Percent Auto 0.6 % (0.0-7.0); Hemoglobin* 12.1 gm/dL (12.0-16.0); Immature Granulocytes Abs Auto 0.02 K/uL (0.00-0.30); Immature Granulocytes Pct Auto 0.2 %; Mean Corpuscular HGB Conc 32 gm/dL (32-36); Mean Corpuscular Hemoglobin 27 pg (26-34); Mean Corpuscular Volume 85 fL (80-100); Monocytes Percent Auto 5.7 % (0.0-11.0); Neutrophils Percent Auto 75.1 % (42.0-72.0); Platelet Count* 257 K/uL (140-440); RDW Coefficient of Variation % 14.1 % (11.5-15.5); Red Blood Count 4.48 m/uL (4.00-5.20); White Blood Count* 8.92 K/uL (4.50-11.00)
[2024-04-15 22:31] LABS: Slide Review Reflex No
[2024-04-16] VITALS: O2SAT 96
[2024-04-16] MEDS: CLINDAMYCIN 600 MG/50 ML-D5W 600 MG/50 ML PIGGYBACK 100 MG IVPB (00:22)
[2024-04-16] MEDS: VANCOMYCIN 2 GM/400 ML 2 GM/400 ML PIGGYBACK IVPB (00:51)
[2024-04-16 02:02] VITALS: BP 121/63; PULSE 99; RESP 20; O2SAT 96
[2024-04-16 04:02] VITALS: BP 110/65; PULSE 87; RESP 20; O2SAT 94
[2024-04-16 05:22] VITALS: BP 125/74; PULSE 85; RESP 20; TEMP 37; O2SAT 94
[2024-04-16 05:30] VITALS: BP 125/74; PULSE 85; RESP 20; TEMP 37
== END 2024-04-16 05:31 | disposition home or self-care (01) ==
PROVIDERS: Emergency Provider Family Medicine; PCP Physician Assistant Medical
DX: K11.3 Abscess of salivary gland (principal)
CPT/HCPCS: 36415; 70491; 80048; 85025; 86140; 94761; 96365; 96366; 99284; J0736; J3372; Q9967

== ENCOUNTER 2024-11-05 15:45 | Outpatient (RCR) | payer BC, SELFPAY | END 2025-03-05 23:59 | disposition home or self-care (01) | PROVIDERS: PCP Physician Assistant Medical; Visit Provider Physician Assistant Medical | DX: R53.81 Other malaise (principal); R06.02 Shortness of breath; R53.83 Other fatigue; M54.42 Lumbago with sciatica, left side; G89.29 Other chronic pain; Z51.89 Encounter for other specified aftercare | CPT/HCPCS: 97110; 97112; 97140; 97162; 97530 ==